=== PATIENT | male | born 1970 | race Caucasian/White ===

== ENCOUNTER 2024-12-13 00:35 | Emergency (ER) | payer OTHER, SELFPAY ==
[2024-12-13 00:48] VITALS: BP 141/83; PULSE 70; TEMP 37.1; O2SAT 95; BMI 30.1
--- OUTSIDE RECORDS SUMMARY | 2024-12-13 00:51 | XMS_ITS | Encounter Summary ---
Demographics Address [address] [place] [address] Mobile Phone Email Address Preferred Language en Marital Status Unmarried Bahai Affiliation Unknown Race White Ethnic Group Not or Lati no Author Organization [facility] Address [address] [place] [address] Care Team Providers Care Load Tester Name Role Phone Carroll Khan MD Primary Care Provider [phone] Encounter Details Date Type Department Care Team ([facility] Contact Info) Description 05/12/2023 Abstract [facility] [address] [facility] [address] [place] [address] Chrystal Pham, [address] [facility] [address] [place] [address] Social History Tobacco Use Types Packs/Day Years Used Date Smoking Tobacco: Every Day Cigarettes Passive Smoke Exposure: Current Smokeless Tobacco: Never Alcohol Use Standard Drinks/Week Comments Not Currently 0 (1 standard drink = 0.6 oz pur e alcohol) AUDIT-C Answer Date Recorded Q1: How often do you have a drink containing alcohol? Never 10/06/2022 Q2: How many drinks containi ng alcohol do you have on a typical day when you are drinking? Patient does not drink Q3: How often do you have si x or more drinks on one occasion? Never 10/06/2022 PHQ-2 Answer Date Recorded Patient Health Questionnaire-2 Score 0 10/06/2022 Sex and Gender Information Value Date Recorded Sex Assigned at Not on file Legal Sex Male 7:09 PM EDT Gender Identity Not on file Sexual Orientation Not on file documented as of this encounter Plan of Treatment Not on file documented as of this encounter Visit Diagnoses Not on filedocumented in this encounter Care Teams Load Tester Relationship Specialty Start Date End Date Carroll Khan MD [address] [place] [address] PCP - General Family Medicine 09/13/22 documented as of this encounter
--- OUTSIDE RECORDS SUMMARY | 2024-12-13 00:51 | XMS_ITS | Encounter Summary ---
Author Organization [facility] Address [address] [place] [address] Care Team Providers Care Country Printer Apprentice Name Role Phone Carroll Khan MD Primary Care Provider [phone] Reason for Visit * Reason Comments Med Refill Encounter Details Date Type Department Care Team (Late st Contact Info) Description 01/21/2023 [facility]ill [facility] [address] [facility] [address] [place] [phone] Chrystal Pham DO [address] [facility] [address] [place] [address] Diabetic polyneuropathy associated with type 2 diabetes mellitus (HCC); Mixed hyperlipidemia Social History Tobacco Use Types Packs/Day Years [...] on file documented as of this encounter Miscellaneous Notes * Telephone Encounter - Chrystal Pham DO - 01/23/2023 12:10 PM EDT He should get pravastatin from his pcp Dr Khan. thanks * Telephone Encounter - Eden Merida LPN - 01/23/2023 12:06 PM EDT Do you fill pravastatin or his pcp? documented in this encounter Plan of Treatment Not on file documented as of this encounter Visit Diagnoses Diagnosis Diabetic polyneuropathy associated with type 2 diabetes mellitus (HCC) Mixed hyperlipidemia Mixed hyperlipidemia documented in this encounter Care Teams Country Printer Apprentice Relationship Specialty Start Date End Date Carroll Khan MD [address] [place] [address] PCP - General Family Medicine 09/13/22 documented as of this encounter
--- OUTSIDE RECORDS SUMMARY | 2024-12-13 00:52 | XMS_ITS | Encounter Summary ---
Demographics Address [address] [facility] [place] [address] Mobile Phone Email Address Preferred Language en Marital Status Unmarried Advent Affiliation Unknown Race White Ethnic Group Not or Lati no Author Organization [facility] Address [address] [facility] [address] Care Team Providers Care Charger Operator Name Role Phone Carroll Khan MD Primary Care Provider [phone] Encounter Details Date Type Department Care Team (Late st Contact Info) Description 10/11/2022 Abstract [facility] [address] [facility] [address] [place] [id number] Chrystal Pham, [address] [facility] [address] [place] [address] Social History Tobacco Use Types Packs/Day Years Used Date Smoking Tobacco: Every Day Cigarettes Passive Smoke Exposure: Current Smokeless Tobacco: Never Tobacco Cessation:Ready to Q uit: Not Asked; Counseling Given: Not Answered Alcohol Use Standard Drinks/Week Comments Not Currently [...] on filedocumented in this encounter Care Teams Charger Operator Relationship Specialty Start Date End Date Carroll Khan MD [address] [place] [phone] PCP - General Family Medicine 09/13/22 documented as of this encounter
--- OUTSIDE RECORDS SUMMARY | 2024-12-13 00:52 | XMS_ITS | Clinical Summary ---
Author Organization [facility] Address [address] [facility] [place] [address] Care Team Providers Care Medical Assistant Instructor Name Role Phone Carroll Khan MD Primary Care Provider [phone] Allergies Active Allergy Reactions Criticality Noted Date Comments Morphine Headache Low 06/07/2023 Medications glucose blood (True Metrix Blood Glucose Test) test strip True Metrix Glucose Test Strip Active insulin pen needle (pen needle, diabetic) 31G X 8 mm misc BD Ultra-Fine Short Pen Needle 31 gauge x 5/16 Active fenofibrate (Triglide) 160 MG tabletIndications: Mixed hyperlipidemia Take 1 tablet (160 mg) by mouth 1 (one) time each day at the same time. 30 tablet 3 10/07/19 23 Active Additional Information Patient not taking.Reported on 12/05/2023 pravastatin (Pravachol) 20 MG tabletIndications: Mixed hyperlipidemia take 1 tablet by mouth once daily AT THE SAME TIME EACH DAY 120 tablet 06/29/19 24 Active Additional Information Patient not taking.Reported on 12/05/2023 empagliflozin (Jardiance) 10 MGIndications:Diab etic polyneuropathy associated with type 2 diabetes mellitus (HCC) Take 1 tablet (10 mg) by mouth in the morning. 90 tablet 3 11/20/19 24 Active insulin lispro (HumaLOG KWIKPEN) 100 UNIT/ML injectionIndicatio ns:Type 2 diabetes mellitus with polyneuropathy (HCC) Inject 10 units QAC (max daily 50 units) 15 mL 3 11/20/19 24 Active gabapentin (Neurontin) 300 MG capsule Three times daily 08/16/19 24 Active Continuous Glucose Sensor (FreeStyle Mary 3 Sensor) miscIndications:Ty pe 2 diabetes mellitus with polyneuropathy (HCC) Inject 1 Device under the skin every 14 (fourteen) days 6 each 3 12/05/19 24 Active insulin glargine (Lantus SoloStar) 100 UNIT/ML penIndications:Typ e 2 diabetes mellitus with polyneuropathy (HCC) Inject 50 Units under the skin Daily 15 mL 3 12/29/19 24 Active Active Problems Problem Noted Date Diagnosed Date Type 2 diabetes mellitus wit h hyperglycemia, with long-term current use of insulin 12/05/2023 Long-term insulin use 01/13/2023 Current smoker 11/15/2022 Overview (11/15/2022): Added secondary to documentation in Social History. Verruca plantaris 09/11/2022 Contracture, left ankle 09/11/2022 Contusion of foot 09/11/2022 Type 2 diabetes mellitus with polyneuropathy Assessment & Plan (12/05/2023 1:53 PM EDT): During the appointment today all pertinent labs, imaging, health maintenance, and glucose readings were reviewed. Encouraged to check blood glucose throughout the day with some fasting and some PP readings. They are to bring their glucose meter/cgm in to all appointments. All of the patients questions, treatment options, and current care plan and goals were discussed. A copy of this along with pertinent instructions were given to the patient at the end of the appointment. The patient voices understanding of all of this and is to call in between appointments if they have any problems or questions. Miguel Shah is struggling to gain control of their diabetes. I am very concerned for diabetes related complications. , Discussed importance of checking blood glucose regularly and bringing them in to their appointment in order for me to better adjust their medications. , Instructions given today include: Insulin instructions and Dietary education. He really needs to work on improving his diet and taking medications consistently to improve control. If he has a hard time getting his meds through the pharmacy he can contact our office. Unfortunately he needs follow the insurance company/pharmacy guidelines even though he doesn't like this. His life and health depends on him taking his medications regularly. Will try the [employer] mary 3 cgm as this may be less expensive for him. He needs to show up for all of his appts or at least call in 24 hrs before appt to cancel if he wishes to stay under my care. Assessment & Plan (05/12/2023 1:57 PM EST): During the appointment today all pertinent labs, imaging, health maintenance, and glucose readings were reviewed. Encouraged to check blood glucose throughout the day with some fasting and some PP readings. They are to bring their glucose meter/cgm in to all appointments. All of the patients questions, treatment options, and current care plan and goals were discussed. A copy of this along with pertinent instructions were given to the patient at the end of the appointment. The patient voices understanding of all of this and is to call in between appointments if they have any problems or questions. Miguel Shah is struggling to gain control of their diabetes. I am very concerned for diabetes related complications. , Discussed dietary changes at length. Encouraged to limit simple carbs and focus more on healthy protein/fat with all meals and snacks. They should also avoid any sugary drinks. , Discussed importance of checking blood glucose regularly and bringing them in to their appointment in order for me to better adjust their medications. , Instructions given today include: Hypoglycemia management, Insulin instructions, and Dietary education. Again discussed importance of avoiding sugary drinks and improving his diet. Will increase basal insulin. Will also add lyumjev for his large meal that he has daily. Assessment & Plan (01/13/2023 10:22 AM EDT): During the appointment today all pertinent labs, imaging, health maintenance, and glucose readings were reviewed. Encouraged to check blood glucose throughout the day with some fasting and some PP readings. They are to bring their glucose meter/cgm in to all appointments. All of the patients questions, treatment options, and current care plan and goals were discussed. A copy of this along with pertinent instructions were given to the patient at the end of the appointment. The patient voices understanding of all of this and is to call in between appointments if they have any problems or questions. Miguel Shah is struggling to gain control of their diabetes. I am very concerned for diabetes related complications. , Will stay on current medications. , The patient is wearing their cgm on a daily basis and making decisions in regards to adjusting insulin daily as well for at least the last 60 days. The only way he is going to get better control is if he stops drinking sugary drinks. He also needs to be consistent with taking his medications. Assessment & Plan (11/15/2022 1:29 PM EDT): During the appointment today all pertinent labs, imaging, health maintenance, and glucose readings were reviewed. Encouraged to check blood glucose throughout the day with some fasting and some PP readings. They are to bring their glucose meter/cgm in to all appointments. All of the patients questions, treatment options, and current care plan and goals were discussed. A copy of this along with pertinent instructions were given to the patient at the end of the appointment. The patient voices understanding of all of this and is to call in between appointments if they have any problems or questions. Miguel Shah continues to struggle to gain control of their diabetes. I am very concerned for diabetes related complications. , Instructions given today include: Dietary education. Will increase basaglar to try and improve control. I need bg readings in order to make better decisions for him. He is to avoid all sugary drinks. Will try and get him a cgm. Essential hypertension 09/11/2022 Hyperlipidemia 09/11/2022 Obesity due to excess calories 09/11/2022 Onychomycosis due to dermatophyte 09/11/2022 Pain in limb 09/11/2022 Plantar fascial fibromatosis 09/11/2022 Hematoma 05/08/2018 Infected hematoma 05/08/2018 Resolved Problems Problem Noted Date Diagnosed Date Resolved Date Diabetic mononeuropathy 09/11/2022 07/2 08/2022 Immunizations Immunization Administration Dates Next Due MMR 01/19/2001 Family History Relation Name Status Comments Father Alive Mother Alive Social History Tobacco Use Types Packs/Day Years Used Date Smoking Tobacco: Every Day Cigarettes Passive Smoke Exposure: Current Smokeless Tobacco: Never Tobacco Cessation:Ready to Q uit: Not Asked; Counseling Given: Yes Alcohol Use Standard Drinks/Week Comments Not Currently 0 (1 standard drink = 0.6 oz pur e alcohol) B1300 Health Literacy Answer Date Recor ded How often do you need to hav e someone help you when you read instructions, pamphlets, or other written material from your doctor or pharmacy? Never 11/24/2023 Social Connection and Isolat ion Panel [NHANES] Answer Date Recorded In a typical week, how many times do you talk on the phone with family, friends, or neighbors? More than three times a week 11/24/2023 How often do you get togethe r with friends or relatives? Twice a week 11/24/2023 How often do you attend chur ch or catholic services? Never 11/24/2023 Do you belong to any clubs o r organizations such as methodist groups, unions, fraternal or athletic groups, or school groups? No 11/24/2023 How often do you attend meet ings of the clubs or organizations you belong to? Never 11/24/2023 Are you , , di vorced, , never , or living with a partner? Never 11/24/2023 AUDIT-C Answer Date Recorded Q1: How often do you have a drink containing alcohol? Never 11/24/2023 Q2: How many drinks containi ng alcohol do you have on a typical day when you are drinking? Patient does not drink Q3: How often do you have si x or more drinks on one occasion? Never 11/24/2023 Overall Financial Resource Strain (CARDIA) Answe r Date Recorded How hard is it for you to pa y for the very basics like food, housing, medical care, and heating? Not very hard 11/24/2023 PHQ-2 Answer Date Recorded Patient Health Questionnaire-2 Score 0 12/05/2023 [facility] - Occupational Stress Questionnaire Answer Date Recorded Do you feel stress - tense, restless, nervous, or anxious, or unable to sleep at night because your mind is troubled all the time - these days? To some extent 11/24/2023 Exercise Vital Sign Answer Date Recorde d On average, how many days pe r week do you engage in moderate to strenuous exercise (like a brisk walk)? 2 days 11/24/2023 On average, how many minutes do you engage in exercise at this level? 20 min 11/24/2023 Hunger Vital Sign Answer Date Recorded Within the past 12 months, y ou worried that your food would run out before you got the money to buy more. Sometimes true Within the past 12 months, t he food you bought just didn't last and you didn't have money to get more. Sometimes true 05/2023 PRAPARE - Transportation Answer Date Re corded In the past 12 months, has l ack of transportation kept you from medical appointments or from getting medications? No 05/2023 In the past 12 months, has l ack of transportation kept you from meetings, work, or from getting things needed for daily living? No 11/24/2023 Housing Stability Vital Sign Answer Damir e Recorded In the last 12 months, was t here a time when you were not able to pay the mortgage or rent on time? No 11/24/2023 Number of Times Moved in the Last Year Not on fi le 11/24/2023 At any time in the past 12 [address] [place], were you homeless or living in a jail (including now)? No 11/24/2023 Sex and Gender Information Value Date Recorded Sex Assigned at Not on file Legal Sex Male 7:09 PM EDT Gender Identity Not on file Sexual Orientation Not on file Last Filed Vital Signs Vital Sign Reading Time Taken Comments Blood Pressure 128/82 12/05/2023 11:29 AM EDT Pulse 87 12/05/2023 11:29 AM EDT Temperature 36.2 C (97.1 F) 12/05/2023 11:29 AM EDT Respiratory Rate - - Oxygen Saturation 98% 12/05/2023 11:29 AM EDT Inhaled Oxygen Concentration - - Weight 98.9 kg (218 lb) 12/05/2023 11:29 AM EDT Height 180.3 cm (5' 11 ) 12/05/2023 11:29 AM EDT Body Mass Index 30.4 12/05/2023 11:29 AM EDT Plan of Treatment Not on file Insurance * Guarantor: Miguel Shah Account Type Relation to Patient Date of Phone Billing Address Personal/Family Self 1970 [address] [place] [address] [facility] Care Teams Medical Assistant Instructor Relationship Specialty Start Date End Date Carroll Khan MD [address] [place] [address] PCP - General Family Medicine 09/13/22
--- OUTSIDE RECORDS SUMMARY | 2024-12-13 00:52 | XMS_ITS | Encounter Summary ---
Author Organization [facility] Address [address] [place] [address] Care Team Providers Care Intensive Care Ambulance Paramedic Name Role Phone Carroll Khan MD Primary Care Provider [phone] Reason for Visit * Reason Onset Date Comments Med Refill 05/31/2023 Encounter Details Date Type Department Care Team (Late st Contact Info) Description 05/31/2023 Refill [facility] [address] [facility] [address] [place] [phone] Chrystal Pham, [address] [facility] [address] [place] [address] Type 2 diabetes mellitus with polyneuropathy (HCC) Social History Tobacco Use Types Packs/Day Years [...] encounter Miscellaneous Notes * Telephone Encounter - Lois Michelle LPN - 05/31/2023 10:23 AM EST RX sent 05/17/23 documented in this encounter Plan of Treatment Not on file documented as of this encounter Visit Diagnoses Diagnosis Type 2 diabetes mellitus with polyneuropathy (HCC) Type II or unspecified type diabetes mellitus with neurological manifestations, not stated as uncontrolled documented in this encounter Care Teams Intensive Care Ambulance Paramedic Relationship Specialty Start Date End Date Carroll Khan MD [address] [place] [address] PCP - General Family Medicine 09/13/22 documented as of this encounter
[2024-12-13 01:44] VITALS: BP 142/82; PULSE 88; TEMP 36.3; O2SAT 97
[2024-12-13] MEDS: FAMOTIDINE/PF 20 MG/2 ML VIAL IV (02:29)
[2024-12-13] MEDS: 0.9 % SODIUM CHLORIDE 1,000 ML 1000 ML IV (02:29)
[2024-12-13 02:38] LABS: Hematocrit 42.7 % (42.0-54.0); Hemoglobin 14.6 g/dL (14.0-18.0); Immature Granulocytes Abs Auto 0.06 10^3/uL (0.00-0.03); Immature Granulocytes Pct Auto 0.6 % (0.0-0.5); Lymphocytes Absolute Auto 2.7 10^3/uL (1.2-3.8); Mean Corpuscular HGB Conc 34.2 g/dL (29.9-35.2); Mean Corpuscular Hemoglobin 29.1 pg (25.9-34.0); Mean Corpuscular Volume 85.1 fL (80.0-94.0); Platelet Count 171 10^3/uL (150-450); Red Blood Count 5.02 10^6/uL (4.70-6.10); White Blood Count 10.3 10^3/uL (4.0-11.0)
--- NOTE | 2024-12-13 02:49 | ED.ABDPAIN1 ---
HPI - Abdominal Pain General Chief Complaint: Abdominal Pain Stated Complaint: ABDOMINAL PAIN LASTING TWO WEEKS Time Seen by Provider: 12/13/24 00:44 Source: patient Mode of arrival: walk-in Limitations: no limitations Related Data Home Medications ?Medication ?Instructions ?Recorded ?Confirmed fenofibrate 160 mg tablet mg 12/13/24 lisinopril 10 mg tablet mg 12/13/24 pravastatin 20 mg tablet mg 12/13/24 Allergies Allergy/AdvReac Type Severity Reaction Status Date / Time No Known Drug Allergies Allergy Verified 12/13/24 00:53 Review of Systems ROS Status of ROS 10 or more systems reviewed and unremarkable except as noted in history and below [facility] Medical History (Updated 12/13/24 @ 05:35 by Marisol Grossman MD) Pancreatitis ?K85.90 - Acute pancreatitis without necrosis or infection, unspecified (ICD-10) Social History Little interest or pleasure in doing things: not at all Feeling down, depressed, or hopeless: not at all Exam Narrative Exam Narrative: Vital signs and Nursing Notes reviewed: Patient is afebrile with a normal pulse, blood pressure is mildly elevated 142/82, he is not hypoxic with pulse ox of 97% on room air General: Awake, alert, oriented, no acute distress, lying comfortably on the stretcher HEENT: Normocephalic atraumatic, mucous membranes are moist and pink, eyes are clear, normal conjunctiva, vision is grossly intact, no scleral icterus Chest: Lungs are clear to auscultation with good air entry, there is no wheezing rhonchi or rales appreciated no accessory muscle use, patient is speaking in complete sentences-no chest wall tenderness to palpation CVS: Regular rate and rhythm S1-S2, no murmurs rubs or gallops, pulses are brisk and equal bilaterally ABD: Soft, nondistended, mild epigastric tenderness with no rebound guarding rigidity, no pulsatile masses, no lower jose tenderness noted, bowel sounds are normal Extremities: Moving all extremities, no lower extremity tenderness or swelling noted, negative Homans' sign, pulses are brisk and equal bilaterally Skin: Normal in appearance without rash,pallor, petechiae or purpura Neuro: No focal deficits I Constitutional Vital Signs, click to edit/add: Last Vital Signs Temp 97.3 F L 12/13/24 01:44 Pulse 88 12/13/24 01:44 Resp 16 12/13/24 01:44 BP 142/82 H 12/13/24 01:44 Pulse Ox 97 12/13/24 01:44 O2 Del Method Room Air 12/13/24 01:44 Course Vital Signs Vital signs: Vital Signs Temperature 98.7 F 12/13/24 00:48 Pulse Rate 70 12/13/24 00:48 Respiratory Rate 18 12/13/24 00:48 Blood Pressure 141/83 12/13/24 00:48 Pulse Oximetry 95 12/13/24 00:48 Temperature 97.3 F L 12/13/24 01:44 Pulse Rate 88 12/13/24 01:44 Respiratory Rate 16 12/13/24 01:44 Blood Pressure 142/82 H 12/13/24 01:44 Pulse Oximetry 97 12/13/24 01:44 Oxygen Delivery Method Room Air 12/13/24 01:44 MDM - Abdominal Pain MDM Narrative Medical decision making narrative: This 53-year-old male with a history of pancreatitis in the past who has not been an alcohol drinker for the past 15 years presents for evaluation of intermittent upper abdominal pain that is intermittent in the epigastric and left upper quadrant areas. It does not radiate. It is not associated with nausea or vomiting. He has not had any weight loss. He was seen by his family physician who stated to him that he wanted to get a CAT scan but the patient has not been contacted yet to get the CAT scan so he comes to the emergency department for these complaints. He is not currently having any pain. He denies any chest pain or shortness of breath. He states that at times his upper abdomen feels distended. He has not been constipated or had any diarrhea. He has not had any fever. Routine labs are reviewed.He has a white count and stable hemoglobin. Electrolytes are normal with the exception of a glucose of 272. Liver function tests are normal. Lipase is elevated at 209. CT scan of the abdomen pelvis with IV contrast was ordered and shows some questionable gallbladder wall thickening cholelithiasis with recommendation for ultrasound if cholecystitis is a clinical concern. At this time acute cholecystitis is not a clinical concern as he is not having any pain. The pain has been intermittent for the past 2 weeks. He will be provided a copy of his CT scan to share with his family physician with recommendation for an outpatient ultrasound as directed by his family physician. Lab Data Attestation: I reviewed the patient's lab results. Labs: Lab Results 12/13/24 Range/Units 02:25 WBC 10.3 (4.0-11.0) 10^3/uL RBC 5.02 (4.70-6.10) 10^6/uL Hgb 14.6 (14.0-18.0) g/dL Hct 42.7 (42.0-54.0) % MCV 85.1 (80.0-94.0) fL MCH 29.1 (25.9-34.0) pg MCHC 34.2 (29.9-35.2) g/dL RDW 15.0 (11.0-15.0) % Plt Count 171 (150-450) 10^3/uL MPV 11.7 (9.5-13.5) fL Neut % (Auto) 64.4 (43.0-75.0) % Lymph % (Auto) 25.9 (20.5-60.0) % [place] % (Auto) 6.9 (1.7-12.0) % Eos % (Auto) 1.7 (0.9-7.0) % Baso % (Auto) 0.5 (0.2-2.0) % Neut # (Auto) 6.6 H (1.4-6.5) 10^3/uL Lymph # (Auto) 2.7 (1.2-3.8) 10^3/uL [place] # (Auto) 0.7 (0.3-0.8) 10^3/uL Eos # (Auto) 0.2 (0.0-0.7) 10^3/uL Baso # (Auto) 0.1 (0.0-0.1) 10^3/uL Abs Immat Gran (auto) 0.06 H (0.00-0.03) 10^3/uL Imm/Tot Granulo (auto) 0.6 H (0.0-0.5) % Sodium 135 L (136-145) mmol/L Potassium 4.3 (3.5-5.1) mmol/L Chloride 99 (98-107) mmol/L Carbon Dioxide 29.0 (21.0-32.0) mmol/L Anion Gap 11.3 BUN 19.0 H (7.0-18.0) mg/dL Creatinine 0.86 (0.70-1.30) mg/dL Est GFR ( Amer) >60 (>=60 mL/min/1.73m^2) Est GFR (Non-Af Amer) >60 (>=60 mL/min/1.73m^2) BUN/Creatinine Ratio 22.1 Glucose 272 H (74-106) mg/dL Lactate 1.3 (0.4-2.0) mmol/L Calcium 9.2 (8.5-10.1) mg/dL Total Bilirubin 0.4 (0.2-1.0) mg/dL AST 11 L (15-37) U/L ALT 22 (16-63) U/L Alkaline Phosphatase 86 (46-116) U/L Total Protein 7.6 (6.4-8.2) g/dL Albumin 3.6 (3.4-5.0) g/dL Globulin 4.0 g/dL Albumin/Globulin Ratio 0.9 Lipase 209.0 H (16.0-77.0) U/L Discharge Plan Discharge Chief Complaint: Abdominal Pain Clinical Impression: Abdominal pain, Gallstones Patient Disposition: Home, Self-Care Time of Disposition Decision: 05:35 Condition: Good Prescriptions / Home Meds: No Action lisinopril 10 mg tablet pravastatin 20 mg tablet fenofibrate 160 mg tablet Print Language: Portuguese Instructions: Gallstones (ED), Abdominal Pain (ED) Referrals: NOELLE VELA [Primary Care Provider, Family Practice] - 1 week
[2024-12-13 02:52] LABS: Alanine Aminotransferase 22 U/L (16-63); Albumin Globulin Ratio 0.9; Albumin Level 3.6 g/dL (3.4-5.0); Alkaline Phosphatase 86 U/L (46-116); Anion Gap 11.3; Aspartate Amino Transferase 11 U/L (15-37); Blood Urea Nitrogen 19.0 mg/dL (7.0-18.0); Calcium 9.2 mg/dL (8.5-10.1); Carbon Dioxide 29.0 mmol/L (21.0-32.0); Chloride 99 mmol/L (98-107); Estimated GFR (African America >60 (>=60 mL/min/1.73m^2); Estimated GFR (Non-African Ame >60 (>=60 mL/min/1.73m^2); Globulin 4.0 g/dL; Glucose 272 mg/dL (74-106); Lipase 209.0 U/L (16.0-77.0); Potassium 4.3 mmol/L (3.5-5.1); Sodium 135 mmol/L (136-145); Total Protein 7.6 g/dL (6.4-8.2)
[2024-12-13 02:54] LABS: Lactate/Lactic Acid 1.3 mmol/L (0.4-2.0)
[2024-12-13 06:01] VITALS: BP 128/89; PULSE 80; O2SAT 98
== END 2024-12-13 06:03 | disposition home or self-care (01) ==
PROVIDERS: Emergency Provider Emergency Medicine; PCP Family Medicine
DX: R10.13 Epigastric pain (principal); R10.12 Left upper quadrant pain; K80.20 Calculus of gallbladder without cholecystitis without obstruction
CPT/HCPCS: 36415; 74177; 80053; 83605; 83690; 85025; 96374; 99284; J3490; Q9967

== ENCOUNTER 2025-02-28 02:54 | Emergency (ER) | payer OTHER, SELFPAY ==
--- OUTSIDE RECORDS SUMMARY | 2025-02-19 08:00 | XMS_ITS | Encounter Summary ---
Author Organization [facility] Address [address] [place] [address] Care Team Providers Care Pre School Manager Name Role Phone Carroll Khan MD Primary Care Provider [phone] Reason for Visit * AvihujVnhodadu7gi pow Lap maciej Encounter Details DateTypeDepartmentCare Team (Latest Contact Info)Gwrkmgpaadc63/29/2025 9:00 AM EDTOffice Visit [facility] [address] [place] [phone] Shaji Cabral DO [address] [facility] [address] [place] [address] Calculus of gallbladder with acute on chronic cholecystitis without obstruction (Primary Dx); History of pancreatitis Social History Tobacco UseTypesPacks/DayYears UsedDateSmoking Tobacco: Every DayCigarettes Passive Smoke Exposure: CurrentSmokeless Tobacco: NeverAlcohol UseStandard Drinks/WeekCommentsNot Currently0 (1 standard drink = 0.6 oz pure alcohol)B1300 Health LiteracyAnswerDate RecordedHow often do you need to have someone help you when you read instructions, pamphlets, or other written material from your doctor or pharmacy?Never11/24/2023Social Connection and Isolation PanelAnswer Date RecordedIn a typical week, how many times do you talk on the phone with family, friends, or neighbors?More than three times a week11/24/2023How often do you get together with friends or relatives?Twice a week11/24/2023How often do you attend buddhism or muslim services?Never11/24/2023o you belong to any clubs or organizations such as buddhism groups, unions, fraternal or athletic aaron ups, or school groups?No11/24/2023How often do you attend meetings of the clubs or organizations you belong to?Never11/24/2023re you , , , , never , or living with a partner?Never 11/24/2023UDIT-CAnswerDate RecordedQ1: How often do you have a drink containing alcohol?Never11/24/2023Q2: How many drinks containing alcohol do you have on a typical day when you are drinking?Patient does not drink11/24/2023Q3: How often do you have six or more drinks on one occasion?Never11/24/2023Overall Financial Resource Strain (CARDIA)AnswerDate RecordedHow hard is it for you to pay for the very basics like food, housing, medical care, and heating?Not very hard 11/24/2023HQ-2AnswerDate RecordedPatient Health Questionnaire-2 Score0 12/05/2023[facility] [place] [facility] Occupational [facility] - Occupational Stress QuestionnaireAnswerDate RecordedDo you feel stress - tense, restless, nervous, or anxious, or unable to sleep at night because yourmind is troubled all the time - these days?To some bsvvdn0911/24/2023Exercise Vital SignAnswerDate Recorded On average, how many days per week do you engage in moderate to strenuous exercise (like a brisk walk)?2 days11/24/2023On average, how many minutes do you engage in exercise at this level?20 min11/24/2023Hunger Vital SignAnswerDate RecordedWithin the past 12 months, you worried that your food would run out before you got the money to buymore.Sometimes true11/24/2023Within the past 12 months, the food you bought just didn't last and you didn't have money to get more.Sometimes true11/24/2023RAPARE - TransportationAnswerDate RecordedIn the past 12 months, has lack of transportation kept you from medical appointments or from getting medications?No11/24/2023In the past 12 months, has lack of transportation kept you from meetings, work, or from getting things needed for daily living?No11/24/2023Housing Stability Vital SignAnswerDate RecordedIn the last 12 months, was there a time when you were not able to pay the mortgage or rent on time?11/24/2023Number of Times Moved in the Last YearNot on file 11/24/2023t any time in the past 12 months, were you homeless or living in a assisted (including now)?11/24/2023Sex and Gender InformationValueDate Recorded Sex Assigned at BirthNot on fileLegal EhuItsg1207/06/2022 7:09 PM EDTGender IdentityNot on fileSexual OrientationNot on filedocumented as of this encounter Progress Notes * Shaji Cabral, DO - 02/19/2025 9:00 AM EDT Images from the original note were not included. Miguel Shah 1970 Miguel Shah is a 54 y.o. male presents for 3rd [facility] maciej HPI: HPI Patient said that he is doing well. He has not having any pain issues. He has not having any pain at incisions. Unless he really bumps against the umbilical incision it has not having any soreness. He is eating without any difficulty. He has not having any nausea or vomiting. He has not havingany symptom that he had prior to surgery. No diarrhea. 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 OBJECTIVE: Physical Exam Constitutional: Appearance: Normal appearance. He is not toxic-appearing. Cardiovascular: Rate and Rhythm: Regular rhythm. Abdominal: General: There is no distension. Tenderness: There is no abdominal tenderness. Comments: Firm scar tissue noted at the umbilical incision no hernia. No pain on exam. All incisions are clean dry and intact. ASSESSMENT AND PLAN: Assessment/Plan Diagnoses and all orders for this visit: Calculus of gallbladder with acute on chronic cholecystitis without obstruction History of pancreatitis Status post laparoscopic cholecystectomy. Patient is healing well. We discussed continued activity restrictions until he gets back to work next week. He can go back to work without restrictions. He is comfortable with that. I am happy to see him again on an as-needed basis otherwise he is discharged from my care. No follow-ups on file. documented in this encounter Plan of Treatment DateTypeDepartmentCare Team (Latest Contact Info)Jmidjqxtzij90/11/2025 2:30 PM ESTOffice Visit [facility] [address] [phone] Shaji Cabral DO [address] [address] documented as of this encounter Visit Diagnoses Diagnosis Calculus of gallbladder with acute on chronic cholecystitis without obstruction- Primary History of pancreatitis Personal history of other diseases of digestive disease documented in this encounter Care Teams Team MemberRelationshipSpecialtyStart DateEnd Date Carroll Khan MD [address] [place] [address] PCP - GeneralFamily Medicine09/13/22documented as of this encounter
--- OUTSIDE RECORDS SUMMARY | 2025-02-25 10:15 | XMS_ITS | Encounter Summary ---
Author Organization [facility] Address [address] [place] [address] Care Team Providers Care Olericulturist Name Role Phone Carroll Khan MD Primary Care Provider [phone] Reason for Visit * ReasonCommentsAbdominal PainPt said he went back to work yesterday and was having the worst pain of his life. His abdomen hurt and he felt lightheaded. He said his nose was bleeding. Encounter Details DateTypeDepartmentCare Team (Latest Contact Info)Sywrjzihfqd18/04/2025 10:15 AM ESTOffice Visit [facility] [address] [facility] [address] [place] [address] Shaji Cabral, [address] [facility] [address] [place] [address] History of pancreatitis (Primary Dx); Calculus of gallbladder with acute on chronic cholecystitis without obstruction; Generalized abdominal pain Social History Tobacco UseTypesPacks/DayYears UsedDateSmoking Tobacco: Every [...] relatives?Twice a week11/24/2023How often do you attend zoroastrianism or episcopal services?Never11/24/2023o you belong to any clubs or organizations such as zoroastrianism groups, unions, fraternal or athletic aaron ups, [...] very hard 11/24/2023HQ-2AnswerDate RecordedPatient Health Questionnaire-2 Score0 12/05/2023[facility] [place] [facility] Occup[facility] - Occupational Stress QuestionnaireAnswerDate RecordedDo you feel stress - tense, restless, nervous, or anxious, or unable to sleep at night because yourmind is troubled all the time - these days?To some qeencn8411/24/2023Exercise Vital SignAnswerDate Recorded On average, how many [...] or from getting things needed for daily living?11/24/2023Housing Stability Vital SignAnswerDate RecordedIn the last 12 months, was there a time when you were not able to pay the mortgage or rent on time?No11/24/2023Number of Times Moved in the Last YearNot on file 11/24/2023t any time in the past 12 months, were you homeless or living in a fpc (including now)?No11/24/2023Sex and Gender InformationValueDate Recorded Sex Assigned at BirthNot on fileLegal FxeVrxx5907/06/2022 7:09 PM EDTGender IdentityNot on fileSexual OrientationNot on filedocumented as of this encounter Last Filed Vital Signs Vital SignReadingTime TakenCommentsBlood Pressure--Pulse--Temperature-- Respiratory Rate--Oxygen Saturation--Inhaled Oxygen Concentration--Defeaf450 kg (227 lb)02/25/2025 10:25 AM SXHZervar150.3 cm (5' 11 )02/25/2025 10:25 AM EST Body Mass Index31.6602/25/2025 10:25 AM ESTdocumented in this encounter Progress Notes * Shaji Cabral, - 02/25/2025 10:15 AM EST Images from the original note were not included. Miguel Shah 1970 Miguel Shah is a 54 y.o. male presents for Abdominal Pain (Pt said he went back to work yesterday and was having the worst pain of his life. His abdomen hurt and he felt lightheaded. He said hisnose was bleeding. ) HPI: Abdominal Pain Patient said on Monday night he got some abdominal pain. It was not at anyone particular spot. It was all over. There was significant. He was not noticing any issues at the incisions or at the umbilical incision. With twisting it seemed to be worst. He was not vomiting. He is having bowel movements. 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 He is thinking he needs another week off of work. He can not take time off without a medical leave. He has not vomiting. He has not having any fevers chills or sweats. He has not having any darkening of his urine. Things are not severe like they were the other day. He also noticed some nose bleeding But it was very short-lived and just a little bit on the toilet paper when he blew his nose. He said the area was very dry where he was working. OBJECTIVE: Physical Exam Constitutional: Appearance: Normal appearance. He is not toxic-appearing. Comments: After the exam patient is walking and moving around the office without any difficulty. Cardiovascular: Rate and Rhythm: Regular rhythm. Pulmonary: Effort: No respiratory distress. Abdominal: General: There is no distension. Tenderness: There is no abdominal tenderness. Comments: No hernia on exam. Vigorous exam of the periumbilical incision reveals no hernia defect nor focal point tenderness. With Valsalva that has not producing a hernia or mass in the location nor is he having worse pain with that. He has a vague mild pain on exam with no peritonitis or pronounced tenderness. Incisions are well healed no cellulitis or discharge. ASSESSMENT AND PLAN: Assessment/Plan Diagnoses and all orders for this visit: History of pancreatitis Calculus of gallbladder with acute on chronic cholecystitis without obstruction Generalized abdominal pain Pain attack, symptoms improving, no evidence of any hernia or release inches surgical site. Patientalso does not feel it seems to be involved with his incisions. I discussed with him pushing oral intake of liquids and we will check liver function tests including lipase to evaluate for pancreatitis or retained gallstone. If he has severe pain worsening needs to go to emergency room. He is off work until next Monday when I can re-evaluate him. I encouraged him to watch his diet and activity inthe meantime. No follow-ups on file. documented in this encounter Plan of Treatment DateTypeDepartmentCare Team (Latest Contact Info)Bmxvwyojnzc38/11/2025 2:30 PM ESTOffice Visit [facility] [address] [facility] [address] [place] [phone] Shaji Cabral DO [address] [facility] [address] [place] [address] documented as of this encounter Visit Diagnoses Diagnosis History of pancreatitis- Primary Personal history of other diseases of digestive disease Calculus of gallbladder with acute on chronic cholecystitis without obstruction Generalized abdominal pain Abdominal pain, generalized documented in this encounter Care Teams Team MemberRelationshipSpecialtyStart DateEnd Date Carroll Khan MD [address] [place] [phone] PCP - GeneralFamily Medicine09/13/22documented as of this encounter
--- OUTSIDE RECORDS SUMMARY | 2025-02-25 19:32 | XMS_ITS | Continuity of Care Document ---
Author Organization [facility] Address [address] [place] [address] Phone Care Team Providers Care [employer] Name Role Phone ErinKamrynrakel CHAND Primary Care Provider Carroll Khan DO Attending Provider [phone] Shaji Cabral DO Attending Provider Care Teams Patient Care Team Team Status: Active Member Role/Relationship Status Dates Carroll Khan DO Primary Care Provider Active Visit Care Team Team Status: Inactive Member Role/Relationship Status Dates Carroll Khan DO Primary Care Provider Active Start: December 03, 2024 End: December 03, 2024ReSaskia Perez ProviderActiveStart: December 03, 2024 End: December 03, 2024 Visit Care Team Team Status: Inactive Member Role/Relationship Status Dates Carroll Khan DO Primary Care Provider Active Start: January 13, 2025 End: January 13, 2025PaSaskia Garcia ProviderActiveStart: January 13, 2025 End: January 13, 2025 Visit Care Team Team Status: Inactive Member Role/Relationship Status Dates Carroll Khan DO Primary Care Provider Active Start: January 27, 2025 End: January 27, 2025Saskia Steiner ProviderActiveStart: January 27, 2025 End: January 27, 2025 Patient Care Team Team Status: Inactive Member Role/Relationship Status Dates Carroll Khan DO Primary Care Provider Active Start: February 25, 2025 End: February 25, 2025PaSaskia Garcia ProviderActiveStart: February 25, 2025 End: February 25, 2025 Chief Complaint and Reason for Visit Chief Complaint Admit Date e11.40 e78.5 r10.13 i10 E78.5 November 5:51am Calculus Cholecystitis, Hx of Pancreatit is January 13, 2025 10:56am Calculus Cholecystitis, Hx of Pancreatit is January 27, 2025 8:09am Upper Abd Pain February 25, 2025 1 1:04am Allergies, Adverse Reactions, Alerts Allergen Type Severity Reaction Last Updated Verified Status morphine Adverse Reaction Mild Headache January 27, 2025 7:2 5am Yes Active Social History Smoking Status Status Start Date End Date Date of Observa tion Smokes tobacco daily (finding) January 27, 2025 8:28am Observation Status Observation Response Date of Response Legal Sex Male (finding) [facility] Family History Relationship Condition Age at Onset Recorded Date/T patrick father Unknown Malignant neoplasm of lungUnknownmotherDeceasedUnknownsisterMalignant neoplasm UnknownDeceasedUnknown Problems Active Problems Problem Diagnosis/Recorded Date Onset Date Stat us Type 2 diabetes mellitus June 07, 2023 10:23am U nknown Active Cholecystitis January 27, 2025 9:46am Unknown Ac tive Neuropathy June 07, 2023 10:23am Unknown Active Other chronic pain June 07, 2023 10:23am Unknown Active Diabetic peripheral neuropathy June 07, 2023 10: 23am Unknown Active Medications Medication Status Dose Units Route Directions Qty Days Refills S tart Date Stop Date End Date Reason(s) Instructions Adherence Insulin Lispro (Humalog Kwik pen Insulin) 100 unit/mL Insulin Pen Active 10 UNIT SUBCUT 3x/Day befor e meals April 23, 2018 12:00amUnknownLisinopril 10 mg vrruznWkrgus37XLOVVaaci morningSeptember 2024 11:00pmUnknownGabapentin 300 mg xidvlwyYykgpc569YEHO Three times daily as needed for nerve painSeptember 2024 11:00pmUnknown Tramadol 50 mg pbjggfYujyju03NIKQP7W as needed for kyao4685Lfdippv 2024 11:00pmCholecystitis Cholecystitis, unspecifiedUnknownMetformin 500 mg hwbeqmGsrvyqvzzaua571JTTIAbvhm dailySelect [facility] 2017 11:00pmFebrour [facility] 2023 10:22amLisinopril 10 mg ssollqDbeofprdujhb74VLSFHuajqZfnwtes 2017 11:00pmFeabrazo [facility] campus 2023 10:21amPravastatin 20 mg hgctlqHinmmg43LDVFJkfge [facility] 2017 11:00pmUnknownFenofibrate 160 mg qowplyFvltnfhaxesx548DKWWXthnmQyejhdb 2017 11:00pm[facility] 2017 1:32amInsulin Glargine 100 unit/mL (3 mL) insulin syvEwklfz95QVEHQLAYGSZnmjg [facility] 2017 11:00pmUnknown Rivaroxaban (Xarelto) 15 mg (42)- 20 mg (9) tablets,dose lzhfEscybmtqvgkc5EIvju package cqeiciopcb137Vbxjrje 2017 11:00pmSelect [facility]ty Hospital[facility] 2017 8:28pmPO PER PKG DIR must administer with evening mealRivaroxaban (Xarelto) 15 mg (42)- 20 mg (9) tablets,dose aihaAlgxwdgedryv70MATGTykaw dailySelect [facility]ty [facility] 2017 8:30pm April 23, 2018 1:32amHydrocodone-Acetaminophen ([place]) 5-325 mg tablet Tnfvkvqgvbjh5NAYHUB3C as needed for esgw6729Yvaebqn [facility]2017 1:32amFamotidine (Pepcid) 20 mg ednenpWzhquvonuthr62NJVIHtiky ebqau150 February 18, 2018 11:00p[facility]2017 1:32amGabapentin 300 mg capsule Ldmyizndncps785QROSCcdvz times fiigl62202Ppqgt 2023 9:25amSeptember 2024 10:31amFenofibrate 160 mg pchzmnMxddsy061KGFVAzppn [facility] 2023 12:00amFreeTextSi tablet with food Orally Once a day; Note: Source Status: Taking; Provider: Latanya Wilkerson ( )UnknownEmpagliflozin (Jardiance) 10 mg nmhzokQdzkcmrkuhud26BPKRJhgtoEcjrmnxk 2023 12:00am January 13, 2025 10:27amGabapentin 300 mg uvzehdeLqfsnwyrlhnj579BPSW.COMPLEX 55573Zjxcynrq 2023 12:00amApril 2023 9:11nj518 mg orally once daily at bedtime for 3-5 days then twice daily for 3-5 days then three times daily as tolerated Procedures Procedure Date Performed Status OR Cholecystectomy Laparoscopic (Not Applicable) January 27, 2025 9:10am completed Relevant Diagnostic Tests and/or Laboratory Data Laboratory Results Test Collection Date/Time Result Date/Time Result Interpretation Reference Range Result Comment Performing Site Corrected White Blood Count December 03, 2024 5:03am December 03, 2024 5:43am 10.5 10*3/uL [facility]10.5[facility] [id number] [address] [facility] 69338Kjqrfkzos White Blood CountSeptember 2024 10:25am January 13, 2025 12:09pm11.3 10*3/uLAbove high normal4.1-10.[address] [place] [address] Ctr [id number] [address] [facility] 95083Ptvtlnzvunv WBC CountAugust 2024 5:03amAugust 2024 5:43am10.5 10*3/uL4.1-10.[address] [place] [address] Ctr [id number] [address] [facility] 33664Dqvlitfznce WBC CountSeptember 2024 10:25amSeptember 2024 12:09pm11.3 10*3/uLAbove high normal4.1-10.5[facility] [id number] [address] [facility] 52795Etx Blood CountAugust 2024 5:03amAugust 2024 5:43am 5.34 10*6/uL3.90-5.60[facility] [id number] [address] [facility] 51317Tji Blood CountSeptember 2024 10:25amSeptember 2024 12:09pm5.00 10*6/uL3.90-5.60[facility] [id number] [address] [facility] 64260AjszfjvligPctfiz 2024 5:03amAugust 2024 5:43am15.4 g/dL13.0-17.0[facility] [id number] [address] [facility] 06523NcmvrbpgesJvsxcgewf 2024 10:25amSeptember 2024 12:09pm14.5 g/dL13.0-17.0[facility] [id number] [address] [facility] 09970XiluejzvwcHyphib 2024 5:03amAugust 2024 5:43am45.3 %38.8-50.0[facility] [id number] [address] [facility] 68695SlyxcjqucsEmguequio 2024 10:25amSeptember 2024 12:09pm42.9 %38.8-50.0[facility] [id number] [address] [place] [address] 40900Hxvk Corpuscular VolumeAugust 2024 5:03amAugust 2024 5:43am84.9 fL83.5-101[facility] [id number] [address] [facility] 86286Bjrl Corpuscular VolumeSeptember 2024 10:25amSeptember 2024 12:09pm85.8 fL83.5-101[facility] [id number] [address] [facility] 78320Lwnn Corpuscular HemoglobinAugust 2024 5:03amAugust 2024 5:43am28.8 pg27.5-35.2[facility] [id number] [address] [facility] 85231Wvww Corpuscular HemoglobinSeptember 2024 10:25am Susan 2024 12:09pm29.0 pg27.5-35.2[facility] [id number] [address] [facility] 65566Dugu Corpuscular Hemoglobin ConcentAugust 2024 5:03am December 03, 2024 5:43am33.9 g/dL32.5-35.6[facility] [id number] [address] [place] [address] 85777Jcmu Corpuscular Hemoglobin ConcentSeptember 2024 10:25am January 13, 2025 12:09pm33.8 g/dL32.5-35.6[facility] [id number] [address] [place] [address] 23338Nle Cell Distribution WidthAugust 2024 5:032024 5:43am15.8 %Above high kjudht39.0-14.8[facility] [id number] [address] [place] [address] 46164Pzv Cell Distribution WidthSeptember 2024 10:25am January 13, 2025 12:09pm15.7 %Above high owvscv55.0-14.8[facility] [id number] [address] [place] [address] 94767Ryezmvkh CountAugust 2024 5:032024 5:43am 163 10*3/tR129-254AwmslwnyqHol[facility] Center [facility] [id number] [address] [place] [address] 70465Zdpiqoxt CountSeptember 2024 10:25amSeptember 2024 12:06nm877 10*3/kR961-533FzujuqphgHolzer Medical Center [facility] [id number] [address] [place] [address] 23254Vjrf Platelet VolumeAugust 2024 5:032024 5:43am9.2 fL6.6-10.1[facility] [id number] [address] [place] [address] 91963Mlcb Platelet VolumeSeptember 2024 10:25amSeptember 2024 12:09pm10.0 fL6.6-10.1[facility] [id number] [address] [place] [address] 38248Qgnakhtpeqo (%) (Auto)December 03, 2024 5:032024 5:43am63.5 %.[facility] [id number] [address] [facility] [place] [address]Bvheaimyaxh (%) (Auto)January 13, 2025 10:25amSeptember 2024 12:09pm65.4 %.[facility] [id number] [address] [facility] [place] [address]Cnesnkyqqvd (%) (Auto)December 03, 2024 5:032024 5:43am28.4 %.[facility] [id number] [address] [facility] [place] [address]Imaraueouoh (%) (Auto)January 13, 2025 10:25amSeptember 2024 12:09pm25.7 %.[facility] [id number] [address] [facility] [place] [address]Wfhrqrivq (%) (Auto)December 03, 2024 5:032024 5:43am5.2 %.[facility] [id number] [address] [facility] [place] [address]Syjcgftef (%) (Auto)January 13, 2025 10:25amSeptember 2024 12:09pm5.7 %.[facility] [id number] [address] [facility] [place] [address]Iofazizolxr (%) (Auto)December 03, 2024 5:032024 5:43am2.2 %.[facility] [id number] [address] [facility] [place] [address]Jgjbxbpenmg (%) (Auto)January 13, 2025 10:25amSeptember 2024 12:09pm2.4 %.[facility] [id number] [address] [facility] [place] [address]Geboaekrw (%) (Auto)December 03, 2024 5:032024 5:43am0.7 %.[facility] [id number] [address] [facility] [place] [address]Payjaeudd (%) (Auto)January 13, 2025 10:25amSeptember 2024 12:09pm0.8 %.[facility] [id number] [address] [facility] 75010Phnidxjdo RBC Relative Count (auto)December 03, 2024 5:03am December 03, 2024 5:43am0.2 /100{WBC}0-0.5[facility] [id number] [address] [facility] 33863Kdjukzexa RBC Relative Count (auto)January 13, 2025 10:25am January 13, 2025 12:09pm0.2 /100{WBC}0-0.5[facility] [id number] [address] [facility] 576[address]Datololvedh # (Auto)December 03, 2024 5:032024 5:43am6.6 10*3/uL1.8-7.7[facility] [id number] [address] [facility] 75331Cuetggukgxj # (Auto)January 13, 2025 10:25amSeptember 2024 12:09pm7.4 10*3/uL1.8-7.7[facility] [id number] [address] [place] [address] 99285Usasbzrnwzy # (Auto)December 03, 2024 5:032024 5:43am3.0 10*3/uL1.00-4.8[facility] [id number] [address] [place] [address] 85569Xwwtflrszma # (Auto)January 13, 2025 10:25amSeptember 2024 12:09pm2.9 10*3/uL1.00-4.8[facility] [id number] [address] [place] [address] 71633Nkwwskkqv # (Auto)December 03, 2024 5:032024 5:43am0.5 10*3/uL0.0-0.8[facility] [id number] [address] [place] [address] 10453Nhjbblpqa # (Auto)January 13, 2025 10:25amSeptember 2024 12:09pm0.6 10*3/uL0.0-0.8[facility] [id number] [address] [facility] 82340Usjndcjfykh # (Auto)December 03, 2024 5:032024 5:43am0.2 10*3/uL0.0-0.45[facility] [id number] [address] [place] [address] 87062Kyzojyqpftg # (Auto)January 13, 2025 10:25amSeptember 2024 12:09pm0.3 10*3/uL0.0-0.45[facility] [id number] [address] [place] [address] 58839Jvxrporlu # (Auto)December 03, 2024 5:03amA2024 5:43am0.1 10*3/uL0.0-0.2[facility] [id number] [address] [facility] 11549Ckeaymjdl # (Auto)January 13, 2025 10:25amSeptember 2024 12:09pm0.1 10*3/uL0.0-0.2[facility] [id number] [address] [facility] 28262Uzegkhz LevelAugust 2024 5:032024 6:37am 299 mg/dLAbove high mlyrwt06-899CST recommended reference rangeRandom Glucose Reference Range is dependent on time and content of last meal. Glucose of more than 200 mg/dL in a nonstressed, ambulatory subject supports the diagnosisof Diabetes Mellitus.[facility] [id number] [address] [facility] 38457Mbyimql LevelSeptember 2024 10:25amSeptember 2024 10:35hu357 mg/dLAbove high odeuff96-242BMM recommended reference rangeRandom Glucose Reference Range is dependent on time and content of last meal. Glucose of more than 200 mg/dL in a nonstressed, ambulatory subject supports the diagnosisof Diabetes Mellitus.[facility] [id number] [address] [facility] 61762Fpnds Urea NitrogenAugust 2024 5:03ugu2024 6:37am19 mg/dL-[facility] [id number] [address] [facility] 16097Pzsrl Urea NitrogenSeptember 2024 10:25amSeptember 2024 10:56am26 mg/dLAbove high normal7-25[facility] [id number] [address] [place] 6[address]4970CreatinineAugust 2024 5:03amAugu2024 6:37am0.67 mg/dLBelow low normal0.70-1.30[facility] [id number] [address] [place] 6[address]4970CreatinineSeptember 2024 10:25amSeptember 2024 10:56am0.77 mg/dL0.70-1.30[facility] [id number] [address] [facility] 47937Vyxdlqgok GFR (CKD-EPI)December 03, 2024 5:032024 6:37am> 60.0 mL/MinHolzer Medical Center – [facility] Ctr [id number] [address] [place] 6[address]4970Estimated GFR (CKD-EPI)January 13, 2025 10:25amSeptember 2024 10:56am> 60.0 mL/MinHolzer Medical Center – [facility] [id number] [address] [place] 6[address]4970Sodium LevelAugust 2024 5:032024 6:02fd671 mmol/Z171-606PzmelvolnHolzer Medical Center – [facility] [id number] [address] [place] 6[address]49[address]Sodium LevelSeptember 2024 10:25amSeptember 2024 10:85hw869 mmol/B503-900UtobuwsjhHolzer Medical Center – [facility] [id number] [address] [facility] 39977Mzlvxewhh LevelAugust 2024 5:03ugu2024 6:37am 4.0 mmol/L3.5-5.1[facility] [id number] [address] [facility] 89026Zukodqfww LevelSeptember 2024 10:25amSeptember 2024 10:56am4.3 mmol/L3.5-5.1[facility] [id number] [address] [facility] 95642Ihlzefer LevelAugust 2024 5:03ugu2024 6:37am 101 mmol/G48-477UgreoheleHolzer Medical Center – [facility] [id number] [address] [facility] 48387Tuajztfd LevelSeptember 2024 10:25amSeptember 2024 10:99xd001 mmol/P64-846IbcbdhoxhHolzer Medical Center – [facility] [id number] [address] [facility] 88676Pislea Dioxide LevelAugust 2024 5:03ugu2024 6:37am29.1 mmol/L21.0-31.0[facility] [id number] [address] [facility] 59603Pkuiug Dioxide LevelSeptember 2024 10:25amSeptember 2024 10:56am24.6 mmol/L21.0-31.0[facility] [id number] [address] [facility] 51436Usbor GapAugust 2024 5:032024 6:37am10.9 mEq/L6.0-15.0[facility] [id number] [address] [facility] 96330Rozxy GapSeptember 2024 10:25amSeptember 2024 10:56am11.7 mEq/L6.0-15.0[facility] [id number] [address] [facility] 59089Eylzrgi LevelAugust 2024 5:03amAugu2024 6:37am 9.1 mg/dL8.6-10.3[facility] [id number] [address] [facility] 95266Ukkyfsf LevelSeptember 2024 10:25amSeptember 2024 10:56am9.5 mg/dL8.6-10.3[facility] [id number] [address] [facility] 78011Azfbv ProteinAugust 2024 5:03amAugu2024 6:37am 6.6 g/dL6.4-8.9[facility] [id number] [address] [facility] 28543Voyog ProteinNovember 2024 11:15amNovember 2024 12:12pm7.3 g/dL6.4-8.9[facility] [id number] [address] [facility] 30559YvrcadcBxmvbx 2024 5:03amAugust 2024 6:37am3.9 g/dL 3.5-5.7[facility] [id number] [address] [facility] 82249FrgalttOadixlsw 2024 11:15amNovember 2024 12:12pm4.3 g/dL3.5-5.7[facility] [id number] [address] [place] [address] 54739WxycphmqYtddsz 2024 5:03amAugust 2024 6:37am2.7 g/dLHolzer Medical Center [facility] [id number] [address] [facility] 44831YorzopktJwqqaxtp 2024 11:15amNovember 2024 12:12pm3.0 g/dLHolzer Medical Center – [facility] [id number] [address] [place] [address] 76600Snaeeex/Globulin RatioAugust 2024 5:03amAugust 2024 6:37am1.4[facility] [id number] [address] [place] [address] 71093Nvigxyy/Globulin RatioNovember 2024 11:15amNovember 2024 12:12pm1.4[facility] [id number] [address] [place] [address] 17186Mqfug BilirubinAugust 2024 5:03amAugust 2024 6:37am 0.4 mg/dL0.3-1.0[facility] [id number] [address] [place] [address] 82320Rkimc BilirubinOctober 2024 7:35amOctober 2024 8:10am 0.4 mg/dL0.3-1.0[facility] [id number] [address] [facility] 62016Sgcwe BilirubinNovember 2024 11:15amNovember 2024 12:12pm0.5 mg/dL0.3-1.0[facility] [id number] [address] [facility] 49256Bcczmk BilirubinOctober 2024 7:35amOctober 2024 8:10am0.00 mg/dLBelow low normal0.03-0.18If the DBIL is less than 0.1, IBIL is not able to becalculated.[facility] [id number] [address] [facility] 80535Teuglg BilirubinNovember 2024 11:15amNovember 2024 12:12pm0.10 mg/dL0.03-0.18[facility] [id number] [address] [facility] 36904Zjywrqtx BilirubinOctober 2024 7:35amOctober 2024 8:10am0.4 mg/dLHolzer Medical Center – [facility] [id number] [address] [facility] 43123Pplxgekf BilirubinNovember 2024 11:15amNovember 2024 12:12pm0.4 mg/dLHolzer Medical Center – [facility] [id number] [address] [facility] 90514Cbjiwfuwe Amino Transf (AST/SGOT)December 03, 2024 5:03amAugust 2024 6:37am11 U/LBelow low uunivo41-68MkmwtvvjiHolzer Medical Center – [facility] [id number] [address] [facility] 41766Deenvkjgo Amino Transf (AST/SGOT)January 27, 2025 7:35am January 27, 2025 8:10am14 U/U32-90KfxlkdgnjHolzer Medical Center – [facility] [id number] [address] [facility] 54102Cjniongdi Amino Transf (AST/SGOT)February 25, 2025 11:15am February 25, 2025 12:12pm18 U/A60-32XgonhgkgrHolzer Medical Center – [facility] [id number] [address] [facility] 17362Dwszexk Aminotransferase (ALT/SGPT)December 03, 2024 5:03am December 03, 2024 6:37am12 U/L7-52[facility] [id number] [address] [facility] 71092Kwyprqa Aminotransferase (ALT/SGPT)February 25, 2025 11:15am February 25, 2025 12:12pm21 U/L7-52[facility] [id number] [address] [place] [address] 74254Lkklsitm PhosphataseAugust 2024 5:03amA2024 6:37am78 U/Q96-477JrhaadhhfHolzer Medical Center – [facility] [id number] [address] [facility] 86297Roypjskj PhosphataseOctober 2024 7:35amOctober 2024 8:10am62 U/O76-870OdwzopggmHolzer Medical Center – [facility] [id number] [address] [place] [address] 32935Ihgsqwwo PhosphataseNovember 2024 11:15amNovember 2024 12:12pm74 U/O08-085RvjaqqdviHolzer Medical Center – [facility] [id number] [address] [place] [address] 84706Bjmbjaj LevelAugust 2024 5:03amA2024 6:37am52 U/G40-644MwaelsleaHolzer Medical Center – [facility] [id number] [address] [place] [address] 62327Mwxqoxf LevelOctober 2024 7:35amOctober 2024 8:10am58 U/X96-272FwhuifbrvHolzer Medical Center – [facility] [id number] [address] [place] [address] 64324GdlemaCbroil 2024 5:03amA2024 6:37am59.0 U/L 11.0-82.0[facility] [id number] [address] [place] [address] 15372NrgjzhPvvqvom 2024 7:35amOctober 2024 8:10am52.0 U/L 11.0-82.0[facility] [id number] [address] [place] [address] 41780QbjehySgirdcoe 2024 11:15amNovember 2024 12:34bt722.0 U/LAbove high .0-82.0[facility] [id number] [address] [facility] 36199Uvwveildkbr LevelAugust 2024 5:2024 6:58ih811 mg/vQ421-521Krdj less than 200 mg/dl low riskChol 201-239 mg/dl borderline riskChol 240 mg/dl and greater highriskHolzer Medical Center – [facility] [id number] [address] [facility] 40331CUO CholesterolAugust 2024 5:2024 6:37am 26 mg/cT02-65AOO CHOL ATP-III CLASSIFICATION Cardiovascular RiskHDL > or equal to 60 mg/dL LOWHDL < 40 mg/dL [facility] [id number] [address] [facility] 12709Acptrfweaxpid LevelAugust 2024 5:2024 6:90kg120 mg/dLAbove high normal0-149If the triglyceride result is greater than 400, LDLC and related calculations cannot be calculated and resulted.TRIG ATP III CLASSIFICATIONTRIG less than 150 mg/dL NormalTRIG 150-199 mg/dL Borderline highTRIG 200-500 mg/dL High TRIG greater than 500 mg/dL Very highStandard traceable to the Center for Disease Conrtrol and Prevention (CDC) test method. [facility] [id number] [address] [facility] 69677RTW Cholesterol (Measured)December 03, 2024 5:2024 6:53am92 mg/dL0-100LDL ATP III CLASSIFICATIONLDL less than 100 mg/dL OptimalLDL 100-129 mg/dL Near or above hdozfdfFQA754-488 mg/dL Borderline highLDL 160-189 mg/dL HighLDL greater than 189 mg/dL [facility] [id number] [address] [facility] 89406COB Cholesterol, CalculatedAu2024 5:2024 6:37am15 mg/dL0-100LDL ATP III CLASSIFICATIONLDL less than 100 mg/dL OptimalLDL 100-129 mg/dL Near or above dlyriqlJWR014-263 mg/dL Borderline highLDL 160-189 mg/dL HighLDL greater than 189 mg/dL Very highHolzer Medical Center [facility] [id number] [address] [facility] 45567GHMT CholesterolAugust 2024 5:032024 6:37amTNPTest not performedHolzer Medical Center – [facility] [id number] [address] [facility] 01515Ckioopkwmef/HDL RatioAugust 2024 5:032024 6:37am7.1<5.0[facility] [id number] [address] [facility] 87080Dheuhaka Creatinine Clearance (ChemAugust 2024 5:03am December 03, 2024 6:37amN/[facility] [id number] [address] [place] [id number] Creatinine Clearance (ChemSeptember 2024 10:25am January 13, 2025 10:56amN/[facility] [id number] [address] [facility] 22099Cjchkofddo D7tKshuam 2024 5:032024 11:18am 11.7 %Above high normal4.3-5.6Increased risk for diabetes: 5.7 - 6.4diabetes: >6.4glycemic control for adults with diabetes: <7.0[facility] [id number] [address] [facility] 10448Xgrzoqwxc Average GlucoseAugust 2024 5:032024 11:60dz193 mg/dLHolzer [facility] [id number] 1[address] [facility] [address]Hdphr Amphetamines ScreenOctober 2024 7:20amOctober 2024 8:30amNegativeNegativeHolzer Medical Center – [facility] [id number] 1111 [facility] [address]40[address]Hreha Barbiturates ScreenOctober 2024 7:20amOctober 2024 8:30amNegativeNegativeHolzer Medical Center – [facility] [id number] 1111 [facility] [address]1274Ujbum Benzodiazepines ScreenOctober 2024 7:20amOctober 2024 8:30amNegativeNegativeHolzer Medical Center – [facility] [id number] 1111 [facility] [address]Htgya Cocaine ScreenOctober 2024 7:20amOctober 2024 8:30amNegativeNegativeHolzer Medical Center – [facility] [id number] 1111 [facility] 79528Rqfjk Opiates ScreenOctober 2024 7:20amOctober 2024 8:30amNegativeNegativeHolzer Medical Center – [facility] [id number] 1111 [facility] [address]4564Fkzai Phencyclidine ScreenOctober 2024 7:20amOctober 2024 8:30amNegativeNegativeHolzer Medical Center – [facility] [id number] 1111 [facility] [address]Uweig Marijuana (THC) ScreenOctober 2024 7:20amOctober 2024 8:30amPositiveAbove high normalNegativeThese are unconfirmed results and should not be used for legal purposes. Drug Cut-Off Concentration: AMPH 1000 ng/mL RUDDY 200 ng/mL COLLIN 200 ng/mL COCM 300 ng/mL OP 300 ng/mL PCP 25 ng/mL THC 20 ng/mLHolzer Medical Center – [facility] [id number] 1111 [facility] [address]Ehfmctj GlucoseOctober 2024 9:56amOctober 2024 10:92xs614 mg/dLRandom Glucose Reference Range is dependent on time and content of last meal. Glucose of more than 200 mg/dL in a nonstressed, ambulatory subject supports the diagnosis of Diabetes Mellitus.Point of Care testingBedside Glucose CommentOctober 2024 7:35amOctober 2024 7:21wtVxx0: cleaned meterPoint of Care testing Vital Signs Vital Reading Result Reference Range Collection Date/Time Height 71 [in_i] January 27, 2025 7:69uiYngxyi849.96 kgOctober 2024 7:40amBody Temperature 97.9 [degF]97.6-99.0October 2024 10:17amHeart Rate82 /xsq37-589Pzrgnup 2024 10:57amRespiratory rate16 /lad23-85Rtjszzo 2024 10:57amOxygen saturation by Pulse megvijdp91 %95-100October 2024 10:57amBP Lmlsmnfk186 mm[Hg]100-140October 2024 10:57amBP Jczhhuhed17 mm[Hg]60-100October 2024 10:57amInhaled oxygen flow rate8 L/minOctober 2024 9:52am Advance Directives Advance Directive Response Recorded Date/ Time Advance Directives No February 14, 2018 8:20am Insurance Providers Guarantor Miguel Shah Address [address] [facility] [place] [address]Tfsnjqa Info.Home Phone: Coverage Status Update:2024 Payer Group Member ID Coverage Type Subscriber Relationship to Subscriber Effective Date Expiration Date Lucas CASE/HALIMA nullSelfMedicaid [place] [id number] W [place] Id: [id number] 04/[address] [facility] [place] [address] Home Phone: Email: Declined [id number]ce Medicaid [place] [id number] W [place] Id: [id number] 04/25 [facility] [place] [address] Home Phone: Email: Declined [id number] [facility] [place] Id: [id number] W [place] Id: [id number] [address]/25 [facility] [place] [address] Home Phone: Email: Declined [id number] Medical Center [place] Id: [id number] W [place] Id: [id number] [address]/25 [facility] [place] [address] Home Phone: Email: Declined [id number] Memorial Hospital Aur[place]ar Avila Id: [id number] W [place] Id: [id number] [address]/25 [facility] [place] [address] Home Phone: Email: Declined [id number]/HFA/FAP Active 60% [address] [place] [address] Work Phone: [phone] 9830TpVee24yaima Avila Id: [id number] W [place] Id: [id number] [address] [place] [address] Home Phone: Email: Declined [id number] 2018 Encounters Encounter Location(s) Arrival/Admit Date Discharge/Departure Date Discharge/Departure Disposition Provider(s) Departed Clinical -Lab [facility] December 03, 2024 5:51am December 03, 2024 5:52am Discharged to home care or self care (routine discharge) Carroll Khan DO [facility] Clinical -Pre-Surgica l Testing January 13, 2025 10:56am January 13, 2025 10:57am Discharged to home care or self care (routine discharge) Shaji Cabral DO [facility] Surgical Day Care Surgery [facility] January 27, 2025 8:09am January 27, 2025 12:25pm Discharged to home care or self care (routine discharge) Shaji Cabral DO [facility] Clinical -Lab [facility] February 25, 2025 11:04am February 25, 2025 11:05am Discharged to home care or self care (routine discharge) Shaji Cabral DO Plan of Treatment Future Tests Future scheduled test information is unavailable Pending Tests Pending diagnostic test information is unavailable Future Visits Future appointment information is unavailable Future Procedures Procedure Name Ordered Date Scheduled Date Post Anesthesia Tracer order January 27, 2025 8 :08am January 27, 2025 8:15am Discharge Order January 27, 2025 12:01pm Octobe r 2024 12:01pm Future Medications Future medication information is unavailable Patient Instructions Instruction Admit Date Know your Meds January 27, 2025 8: 09am Goals Acute Goals Author Authored Date Experience reduced anxiety * Identifies current stressors * Develops effective coping behaviors * Uses support services as appropriateAlexandrea [facility] 12:01pmRemain free of complications Alexandrea [facility]October 2024 12:01pmUnderstand preop/postop care/sensations * Verbalizes understanding of surgical procedure * Verbalizes understanding of sensations following surgery * Verbalizes understanding of post-op treatment [facility] 20[facility] 12:01pmReport pain at tolerable level * Uses pain scale appropriately * Identify options for pain control - Analgesics - Narcotics - Non-medication measuresMer[facility] 2024 12:01pmAbsence of imbalanced fluid volume s/s [facility] 2024 12:01pmAbsence of physical injury [facility] 2024 12:01pmAbsence of surgical site infection [facility] 2024 12:01pm
[2025-02-28] VITALS (13 sets, daily range): BP systolic 122–198; BP diastolic 69–87; PULSE 76; TEMP 36.9; O2SAT 96–100; BMI 32.2
--- NOTE | 2025-02-28 03:14 | PC.NURSE ---
this patient drives himself of abdomen pain onset 01/27/2025 and at that time patient had his gall bladder removed by Dr Nation this patient rates his pain 5/10 sharp and last bowel movement on 02/25/2025. this patient voices no other concerns, needs and shows no signs of distress
--- NOTE | 2025-02-28 03:26 | ED.ABDPAIN1 ---
HPI - Abdominal Pain General Chief Complaint: Abdominal Pain Stated Complaint: ABDOMINAL PAIN Time Seen by Provider: 02/28/25 03:09 Source: patient Mode of arrival: walk-in Limitations: no limitations History of Present Illness HPI narrative: 54-year-old male presents for evaluation of epigastric abdominal pain with intermittent nausea. He was seen here recently at the request of his family physician he had a CT scan done which showed gallstones. He had his gallbladder removed at [facility] by Dr. Ureña on 01/27/25. All up appointment. He states everything has been going well but he started having epigastric abdominal pain again and his doctor referred him back to the emergency department. He denies that his doctor has done any blood work or other testing on him. He does have a history of pancreatitis. 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 He states he has been eating more than normal and has been gaining weight. He is currently not having any pain nausea or vomiting. His last bowel movement was yesterday. He points to the epigastrium of the area of greatest pain. He denies any radiation of it into his chest, back or shoulder. His surgical incision sites are well-healed. Related Data Home Medications ?Medication ?Instructions ?Recorded ?Confirmed fenofibrate 160 mg tablet mg 12/13/24 lisinopril 10 mg tablet mg 12/13/24 pravastatin 20 mg tablet mg 12/13/24 Allergies Allergy/AdvReac Type Severity Reaction Status Date / Time No Known Drug Allergies Allergy Verified 02/28/25 03:07 Review of Systems ROS Status of ROS 10 or more systems reviewed and unremarkable except as noted in history and below [facility] Medical History (Updated 02/28/25 @ 05:03 by Marisol Grossman MD) Pancreatitis ?K85.90 - Acute pancreatitis without necrosis or infection, unspecified (ICD-10) Social History Little interest or pleasure in doing things: not at all Feeling down, depressed, or hopeless: not at all Exam Narrative Exam Narrative: Vital signs and Nursing Notes reviewed: Afebrile with normal pulse, blood pressure is mildly elevated 148/87, he is not hypoxic with pulse ox of 98% on room air General: Awake male, he is awake, alert, oriented, no acute distress, lying comfortably on the stretcher HEENT: Normocephalic atraumatic, mucous membranes are moist and pink, eyes are clear, normal conjunctiva, vision is grossly intact, posterior pharynx is normal in appearance. No scleral icterus Neck: Supple, no meningeal signs, no anterior or posterior cervical lymphadenopathy Chest: Lungs are clear to auscultation with good air entry, there is no wheezing rhonchi or rales appreciated no accessory muscle use, patient is speaking in complete sentences-no chest wall tenderness to palpation CVS: Regular rate and rhythm S1-S2, no murmurs rubs or gallops, pulses are brisk and equal bilaterally ABD: Obese,Soft, nondistended, mild epigastric tenderness, no rebound guarding or rigidity, bowel sounds are normal, rectus diastasis present when sitting up Extremities: Moving all extremities, no lower extremity tenderness or swelling noted, negative Homans' sign, pulses are brisk and equal bilaterally Skin: Normal in appearance without rash,pallor, petechiae or purpura Neuro: No focal deficits Constitutional Vital Signs, click to edit/add: Last Vital Signs Temp 98.4 F 02/28/25 03:08 Pulse 76 02/28/25 03:08 Resp 18 02/28/25 03:08 BP 124/82 02/28/25 04:00 Pulse Ox 97 02/28/25 04:20 O2 Del Method Room Air 02/28/25 03:08 Course Vital Signs Vital signs: Vital Signs Pulse Oximetry 98 02/28/25 03:04 Temperature 98.4 F 02/28/25 03:08 Pulse Rate 76 02/28/25 03:08 Respiratory Rate 18 02/28/25 03:08 Blood Pressure 124/82 02/28/25 04:00 Pulse Oximetry 97 02/28/25 04:20 Oxygen Delivery Method Room Air 02/28/25 03:08 MDM - Abdominal Pain MDM Narrative Medical decision making narrative: This 54-year-old male who states he had a history of alcohol use 15 years ago and history of pancreatitis who had his gallbladder removed on January [address] Ureña at [facility] presents for evaluation of intermittent epigastric abdominal pain. He states at times he has nausea but has not been vomiting. His appetite has been normal. He has been eating more than usual and states he has been gaining weight. He states he saw his physician who referred him to the emergency department but did not perform any lab testing or radiologic studies. He explained to the nurse that did his intake that he was cleared to go back to work but then his pain started back up. His abdomen is soft with some mild epigastric tenderness. Remainder of his exam is normal. His vital signs are stable. He does not have any scleral icterus. Routine labs were ordered. He has a normal white count and stable hemoglobin. Electrolytes are normal with a glucose of 239. Liver function tests are normal. Lipase is elevated at 338. CT scan from November of this year showed a normal pancreas and questionable gallbladder wall thickening and gallstones. His lipase was mildly elevated at that time at 209. Abdominal series x-ray was ordered and reviewed by myself. It shows a large amount of stool with a nonspecific bowel gas pattern and no free air or other notable abnormalities. He was medicated emergency department with a GI cocktail and Pepcid. The results of his labs and x-ray studies were discussed with him. At this time I do not think that he requires any additional studies. He will be referred to his family physician for further evaluation and I will also refer him to GI. He has never had a endoscopy and his pain is strictly in the epigastrium, not left upper quadrant and nonradiating. Additionally the patient is not having any pain or nausea vomiting at this time. He will be discharged home with a prescription for Protonix and Colace. Lab Data Labs: Lab Results 02/28/25 Range/Units 03:45 WBC 12.5 H (4.0-11.0) 10^3/uL RBC 5.07 (4.70-6.10) 10^6/uL Hgb 14.5 (14.0-18.0) g/dL Hct 43.5 (42.0-54.0) % MCV 85.8 (80.0-94.0) fL MCH 28.6 (25.9-34.0) pg MCHC 33.3 (29.9-35.2) g/dL RDW 14.3 (11.0-15.0) % Plt Count 182 (150-450) 10^3/uL MPV 11.4 (9.5-13.5) fL Neut % (Auto) 68.6 (43.0-75.0) % Lymph % (Auto) 20.7 (20.5-60.0) % [place]wood % (Auto) 6.6 (1.7-12.0) % Eos % (Auto) 2.0 (0.9-7.0) % Baso % (Auto) 0.6 (0.2-2.0) % Neut # (Auto) 8.6 H (1.4-6.5) 10^3/uL Lymph # (Auto) 2.6 (1.2-3.8) 10^3/uL [place] # (Auto) 0.8 (0.3-0.8) 10^3/uL Eos # (Auto) 0.3 (0.0-0.7) 10^3/uL Baso # (Auto) 0.1 (0.0-0.1) 10^3/uL Abs Immat Gran (auto) 0.19 H (0.00-0.03) 10^3/uL Imm/Tot Granulo (auto) 1.5 H (0.0-0.5) % Sodium 132 L (136-145) mmol/L Potassium 4.5 (3.5-5.1) mmol/L Chloride 100 (98-107) mmol/L Carbon Dioxide 25.5 (21.0-32.0) mmol/L Anion Gap 11.0 BUN 24.0 H (7.0-18.0) mg/dL Creatinine 0.79 (0.70-1.30) mg/dL Est GFR ( Amer) >60 (>=60 mL/min/1.73m^2) Est GFR (Non-Af Amer) >60 (>=60 mL/min/1.73m^2) BUN/Creatinine Ratio 30.4 Glucose 239 H (74-106) mg/dL Calcium 8.9 (8.5-10.1) mg/dL Total Bilirubin 0.4 (0.2-1.0) mg/dL AST 15 (15-37) U/L ALT 25 (16-63) U/L Alkaline Phosphatase 72 (46-116) U/L Total Protein 7.2 (6.4-8.2) g/dL Albumin 3.4 (3.4-5.0) g/dL Globulin 3.8 g/dL Albumin/Globulin Ratio 0.9 Lipase 338.0 H (16.0-77.0) U/L Discharge Plan Discharge Chief Complaint: Abdominal Pain Clinical Impression: Abdominal pain, Abdominal pain, epigastric, Constipation Patient Disposition: Home, Self-Care Time of Disposition Decision: 04:58 Condition: Good Prescriptions / Home Meds: No Action lisinopril 10 mg tablet pravastatin 20 mg tablet fenofibrate 160 mg tablet Print Language: Hungarian Instructions: Constipation (ED), Abdominal Pain (ED), Epigastric Pain (ED) Referrals: Olivia Henderson DO [Physician] - 1 week NOELLE VELA [Primary Care Provider, Family Practice] - 1 week
--- OUTSIDE RECORDS SUMMARY | 2025-02-28 03:40 | XMS_ITS | Encounter Summary ---
Author Organization [facility] Address [address] [place] [address] Care Team Providers Care Associate Professor Of Forestry Name Role Phone Carroll Khan MD Primary Care Provider [phone] Encounter Details DateTypeDepartmentCare Team (Latest Contact Info)Abkvtuzxjel84/04/2025Telephone [facility] [address] [facility] [address] [place] [phone] Shaji Cabral DO [address] [facility] [address] [place] [address] Social History Tobacco UseTypesPacks/DayYears UsedDateSmoking Tobacco: Every [...] relatives?Twice a week11/24/2023How often do you attend restoration or jain services?Never11/24/2023o you belong to any clubs or organizations such as restoration groups, unions, fraternal or athletic aaron ups, [...] very hard 11/24/2023HQ-2AnswerDate RecordedPatient Health Questionnaire-2 Score0 12/05/2023[facility] [place] [facility] Occupational [facility] - Occupational Stress QuestionnaireAnswerDate RecordedDo you feel stress - tense, restless, nervous, or anxious, or unable to sleep at night because yourmind is troubled all the time - these days?To some jvjnxk0311/24/2023Exercise Vital SignAnswerDate Recorded On average, how many [...] were you homeless or living in a penitentiary (including now)?No11/24/2023Sex and Gender InformationValueDate Recorded Sex Assigned at BirthNot on fileLegal NvpLywi3207/06/2022 7:09 PM EDTGender IdentityNot on fileSexual OrientationNot on filedocumented as of this encounter Miscellaneous Notes * Telephone Encounter - Brittanie Shaila - 02/25/2025 10:37 AM EST Return to work documented in this encounter Plan of Treatment DateTypeDepartmentCare Team (Latest Contact Info)Tpyjiwsejsi85/11/2025 2:30 PM ESTOffice Visit [facility] [address] [phone] Shaji Cabral DO [address] [address] documented as of this encounter Visit Diagnoses Not on filedocumented in this encounter Care Teams Team MemberRelationshipSpecialtyStart DateEnd Date Carroll Khan MD [address] [place] [id number] PCP - GeneralFamily Medicine09/13/22documented as of this encounter
--- OUTSIDE RECORDS SUMMARY | 2025-02-28 03:40 | XMS_ITS | Clinical Summary ---
Author Organization [facility] Address [address] [facility] [address] Care Team Providers Care Hospital Unit Clerk Name Role Phone Carroll Khan MD Primary Care Provider [phone] Allergies Active AllergyReactionsCriticalityNoted DateCommentsMorphineHeadacheLow 06/07/2023 Medications MedicationSigDispense QuantityRefillsLast FilledStart DateEnd DateStatus glucose blood (True Metrix Blood Glucose Test) test strip Active insulin pen needle (pen needle, diabetic) 31G X 8 mm misc Active fenofibrate (Triglide) 160 MG tablet Indications:Mixed hyperlipidemiaTake 1 tablet (160 mg) by mouth 1 (one) time each day at the same time. 30 tablet ctive pravastatin (Pravachol) 20 MG tablet Indications:Mixed hyperlipidemiatake 1 tablet by mouth once daily AT THE SAME TIME EACH DAY 120 tablet 06/29/2023ctive insulin lispro (HumaLOG KWIKPEN) 100 UNIT/ML injection Indications:Type 2 diabetes mellitus with polyneuropathy (HCC)Inject 10 units QAC (max daily 50 units) 15 mL ctive gabapentin (Neurontin) 300 MG capsule 08/16/2023ctive Continuous Glucose Sensor (FreeStyle Mary 3 Sensor) misc Indications:Type 2 diabetes mellitus with polyneuropathy (HCC)Inject 1 Device under the skin every 14 (fourteen) days 6 each ctive insulin glargine (Lantus SoloStar) 100 UNIT/ML pen Indications:Type 2 diabetes mellitus with polyneuropathy (HCC)Inject 50 Units under the skin Daily 15 mL ctive lisinopril 10 MG tablet Take 10 mg by mouth Daily5Active Active Problems ProblemNoted DateDiagnosed DateGeneralized abdominal pain02/25/2025History of wchaofqbcgnq85/03/2025alculus of gallbladder with acute on chronic cholecystitis without tyzgfrfcelp41/03/2025Type 2 diabetes mellitus with hyperglycemia, with long-term current use of ydqvfxw4812/05/2023Long-term insulin use01/13/2023urrent nywlgd2111/15/2022 Overview (11/15/2022): Added secondary to documentation in Social History. Verruca hmxvqyxks54/21/2023ontracture, left ankle09/11/2022ontusion of foot 09/11/2022Type 2 diabetes mellitus with paiqywacqasejd52/21/2023 Assessment & Plan (12/05/2023 1:53 PM EDT): During the appointment today all pertinent labs, imaging, health maintenance, and glucose readings were reviewed. Encouraged to check blood glucose throughout the day with some fasting and some PP readings. They are to bring their glucose meter/cgm in to all appointments. All of the patients questions, treatment options, and current care plan and goals were discussed. Acopy of this along with pertinent instructions were [...] really needs to work on improving his dietand taking medications consistently to improve control. If he has a hard time getting his meds through the pharmacy he can contact our office. Unfortunately he needs follow the insurance company/pharmacy guidelines even though he doesn't like this. His life and health depends on him taking his medic ations regularly. Will try the freestyle mary 3 cgm as this may be [...] current care plan and goals were discussed. Acopy of this along with pertinent instructions were [...] snacks. They should also avoid any sugary drinks., Discussed importance of checking blood glucose regularly [...] current care plan and goals were discussed. Acopy of this along with pertinent instructions were [...] current care plan and goals were discussed. Acopy of this along with pertinent instructions were [...] order to make better decisions for him. Heis to avoid all sugary drinks. Will try and get him a cgm. Essential trkkbxnqyzfl95/21/2574Flqcwvkwijktnw65/21/2023Obesity due to excess lmwiajwv58/21/2023Onychomycosis due to kykkzcnnzqin19/21/2023ain in limb 09/11/2022lantar fascial uzygatowpcrd79/21/5051Kqqhgjqa33/15/2019Infected /15/2019 Resolved Problems ProblemNoted DateDiagnosed DateResolved DateDiabetic ssvslcayungklu2023 11/15/2022 Encounters DateTypeDepartmentCare YoykLbnxivmuoqe59/04/2025 10:15 AM ESTOffice Visit [facility] [address] [place] [phone] Shaji Cabral, DO History of pancreatitis (Primary Dx); Calculus of gallbladder with acute on chronic cholecystitis without obstruction; Generalized abdominal pain02/25/2025External Result Encounter [facility] Unsolicited Shaji Cabral, DO 02/25/2025Telephone [facility] [address] [place] [address] [address] [place] [address] Shaji Cabral, DO 02/25/20258135Stettx45/03/7172Prqewk62/03/2025Telephone [facility] [address] [place] [address] [place], [place] Severe pain02/19/2025 9:00 AM EDTOffice Visit [facility] [address] [place] [address] Shaji Cabral, DO Calculus of gallbladder with acute on chronic cholecystitis without obstruction (Primary Dx); History of rrjjdcazvjqp40/29/2025Telephone [facility] [address] [place] [address] Shaji Cabral, DO 02/19/20257927Thhurw88/20/2025Telephone [facility] [address] [place] [address] Shaji Cabral, DO 02/05/2025 9:00 AM EDTOffice Visit [facility] [address] [place] [address] Shaji Cabral, DO Calculus of gallbladder with acute on chronic cholecystitis without obstruction (Primary Dx)02/05/20256747Xruvgc64/09/2025Orders Only [facility] [address] [place] [address] Shaji Cabral, DO 01/27/2025External Result Encounter [facility] Unsolicited Shaji Cabral, DO 01/27/2025External Result Encounter [facility] Unsolicited Shaji Cabral, DO 01/27/2025External Result Encounter [facility] Unsolicited Shaji Cabral, DO 01/15/20251446Hokfxf10/22/2025External Result Encounter [facility] Unsolicited Shaji Cabral, DO 01/13/2025External Result Encounter [facility] Unsolicited Shaji Cabral, DO 01/13/2025External Result Encounter [facility] Unsolicited Shaji Cabral, DO 12/25/2024 9:45 AM EDTConsult [facility] [address] [facility] [address] [place] [phone] Shaji Cabral, History of pancreatitis (Primary Dx); Calculus of gallbladder with acute on chronic cholecystitis without obstruction 12/25/2024Orders Only [facility] [address] [facility] [address] [place] [phone] Ascencion Martinez MD 12/25/20240293Azuqiu27/02/2025Travelfrom Last 3 Months Immunizations ImmunizationAdministration DatesNext PpjJWQ2801/19/2001 Family History RelationNameStatusCommentsFatherAliveMotherAlive Social History Tobacco UseTypesPacks/DayYears UsedDateSmoking Tobacco: Every DayCigarettes Passive Smoke Exposure: CurrentSmokeless Tobacco: Never Tobacco Cessation:Ready to Q uit: Not Asked; Counseling Given: Yes Alcohol UseStandard Drinks/WeekCommentsNot Currently0 (1 standard drink = 0.6 oz pure alcohol)B1300 Health LiteracyAnswerDate RecordedHow often do you need to have someone help you when you read instructions, pamphlets, or other written material from your doctor or pharmacy?Never11/24/2023Social Connection and Isolation PanelAnswerDate RecordedIn a typical week, how many times do you talk on the phone with family, friends, or neighbors?More than three times a week 11/24/2023How often do you get together with friends or relatives?Twice a week 11/24/2023How often do you attend orthodox or samaritan services?Never11/24/2023o you belong to any clubs or organizations such as orthodox groups, unions, fraternal or athletic groups, or school groups?No11/24/2023How often do you attend meetings of the clubs or organizations you belong to?Never11/24/2023re you , , , , never , or living with a partner?Never xrqcmip1511/24/2023UDIT-CAnswerDate RecordedQ1: How often do you have a drink containing alcohol?Never11/24/2023Q2: How many drinks containing alcohol do you have on a typical day when you are drinking?Patient does not drink11/24/2023Q3: How often do you have six or more drinks on one occasion? Never11/24/2023Overall Financial Resource Strain (CARDIA)AnswerDate RecordedHow hard is it for you to pay for the very basics like food, housing, medical care, and heating?Not very hard11/24/2023HQ-2AnswerDate RecordedPatient Health Questionnaire-2 Cnzfh898FinSt. Vincent [facility] - Occupational Stress QuestionnaireAnswerDate RecordedDo you feel stress - tense, restless, nervous, or anxious, or unable to sleep at night because yourmind is troubled all the time - these days?To some fpvtxk8411/24/2023Exercise Vital Sign AnswerDate RecordedOn average, how many days per week do [...] time?No11/24/2023Number of Times Moved in the Last Year Not on file11/24/2023t any time in the past 12 months, were you homeless or living in a assisted (including now)?No11/24/2023Sex and Gender InformationValue Date RecordedSex Assigned at BirthNot on fileLegal SzlMvjo4007/06/2022 7:09 PM EDT Gender IdentityNot on fileSexual OrientationNot on file Last Filed Vital Signs Vital SignReadingTime TakenCommentsBlood Beswecdt963/7809 9:42 AM EDT Txjgc8941 11:29 AM RXLBjiebcqqwpe32.2 ??C (97.1 ??F)12/05/2023 11:29 AM EDTRespiratory Rate--Oxygen Otvutjdebw55%12/05/2023 11:29 AM EDTInhaled Oxygen Concentration--Ockvtl319 kg (227 lb)02/25/2025 10:25 AM PNIMsiuzs570.3 cm (5' 11 )02/25/2025 10:25 AM ESTBody Mass Index31.6602/25/2025 10:25 AM EST Plan of Treatment DateTypeDepartmentCare Team (Latest Contact Info)Drjemuspaxx48/11/2025 2:30 PM ESTOffice Visit [facility] [address] [facility] [address] [place] [phone] Shaji Cabral, DO [address] [facility] [address] [place] [address] Procedures Procedure NamePriorityDate/TimeAssociated DiagnosisCommentsLIPASERoutine 02/25/2025 11:15 AM EST HEPATIC FUNCTION YCHIYTpkztxr71/04/2025 11:15 AM EST GLUCOSE POCT AAVHNPQAMYEFnckrtq93/06/2025 10:56 AM EDT GENERAL JAREZDUZKTqvwghy17/06/2025 10:50 AM KMNAMZGEVNDNR70/06/2025 8:35 AM EDT DFTKGRXFUJQ42/06/2025 8:35 AM EDT ALKALINE UHFRDNBIWNUGDYS88/06/2025 8:35 AM EDT ASPARTATE AMINO PBEVFCJMJNAKJSS50/06/2025 8:35 AM EDT BILIRUBIN, WTZBAZLNHGVHZPJQ34/06/2025 8:35 AM EDT GLUCOSE POCT RKNJOMHSWWHBxvsayf80/06/2025 8:35 AM EDT CBC WITH AUTO PPSNJATEFGCBZxqwmam30/22/2025 11:25 AM EDT BASIC METABOLIC GJUOHBnwjhan62/22/2025 11:25 AM EDT ECG 12-LEAD01/13/2025 11:[address] ABDOMEN PELVIS W IV IBFAEBSQEwgnmda30/03/2025 3:30 PM EDTfrom Last 3 Months Results * (ABNORMAL) Lipase (02/25/2025 11:15 AM EST) Only the most recent of2 resultswithin the time period is included. ComponentValueRef RangeTest MethodAnalysis TimePerformed AtPathologist Signature VWQYRQ180.0(H)11.0 - 82.0 U/L104/27/2024 12:12 PM [facility] CtrSpecimen (Source)Anatomical Location / LateralityCollection Method / Volume Collection TimeReceived TimeOtherTopography unknown / Ioxwyrj2002/25/2025 11:15 AM EST02/25/2025 11:15 AM EST Narrative Authorizing ProviderResult TypeResult StatusPaul Larissa [facility] Centerkourtney DOL BLOOD ORDERABLES Edited Result - FinalPerforming OrganizationAddressCity/State/ZIP CodePhone Number [facility] [address] [place] [address], [facility] [address] [place] [address] * Hepatic function panel (02/25/2025 11:15 AM EST)ComponentValueRef RangeTest MethodAnalysis TimePerformed AtPathologist SignatureTOTAL PROTEIN7.36.4 - 8.9 g/dL02/25/2025 12:12 PM [facility] CtrALBUMIN LEVEL4.33.5 - 5.7 g/dL02/25/2025 12:12 PM [facility] CtrGLOBULIN3.0g/dL 02/25/2025 12:12 PM [facility] CtrALBUMIN/GLOBULIN RATIO1.4 02/25/2025 12:12 PM [facility] CtrBILIRUBIN,TOTAL0.50.3 - 1.0 mg/dL02/25/2025 12:12 PM [facility] CtrBILIRUBIN,DIRECT 0.100.03 - 0.18 mg/dL02/25/2025 12:12 PM [facility] Ctr BILIRUBIN,INDIRECT0.4mg/dL02/25/2025 12:12 PM [facility] CtrASPARTATE AMINO FSMDVFSQWPX5628 - 39 U/L104/27/2024 12:12 PM [facility] CtrALANINE STAKPPJDYQJFFJKL922 - 52 U/L104/27/2024 12:12 PM [facility] CtrALKALINE GJONZHBATOK4592 - 104 U/L104/27/2024 12:12 PM [facility] CtrSpecimen (Source)Anatomical Location / LateralityCollection Method / VolumeCollection TimeReceived TimeOther Topography unknown / Cswhfta1202/25/2025 11:15 AM EST02/25/2025 11:15 AM EST Narrative Authorizing ProviderResult TypeResult StatusPaul C Marianna [facility] BLOOD ORDERABLES Edited Result - FinalPerforming OrganizationAddressCity/State/ZIP CodePhone Number [facility] [address] [place] [address], [facility] [address] [place] [address] * GLUCOSE POCT GLUCOMETERS (01/27/2025 10:56 AM EDT) Only the most recent of2 resultswithin the time period is included. ComponentValueRef RangeTest MethodAnalysis TimePerformed AtPathologist Signature GLUCOSE POC BGEXPIIEVAW963uc/dL01/27/2025 11:03 AM EDTFIRELANDSComment: Random Glucose Reference Range is dependent on time and content of last meal. Glucose of more than 200 mg/dL in a nonstressed, ambulatory subject supports the diagnosis of Diabetes Mellitus. Specimen (Source)Anatomical Location / LateralityCollection Method / Volume Collection TimeReceived TimeBlood (Blood)01/27/2025 10:56 AM EDT1 11:02 AM EDT Narrative Authorizing ProviderResult TypeResult StatusPaul C Laffay DOLAB BLOOD ORDERABLES Final ResultPerforming OrganizationAddressty/State/ZIP CodePhone Number [address] [place] [address], * GENERAL PATHOLOGY (01/27/2025 10:50 AM EDT) Narrative Authorizing ProviderResult TypeResult StatusPaul C Laffay DOCLINISYNCFinal Result * ASPARTATE AMINO TRANSFERASE (01/27/2025 8:35 AM EDT)ComponentValueRef Range Test MethodAnalysis TimePerformed AtPathologist SignatureASPARTATE AMINO OLHSIXVHKGB3906 - 39 U/L1 9:10 [facility] Specimen (Source)Anatomical Location / LateralityCollection Method / Volume Collection TimeReceived TimeOtherTopography unknown / Dzmiwyg0701/27/2025 8:35 AM EDT1 8:41 AM EDT Narrative Authorizing ProviderResult TypeResult StatusPaul C Laffay DOLAB BLOOD ORDERABLES Final ResultPerforming OrganizationAddressCity/State/ZIP CodePhone Number [facility] [address] [place] [address], [facility] [address] [place] [address] * (ABNORMAL) Bilirubin, total and direct (01/27/2025 8:35 AM EDT)ComponentValue Ref RangeTest MethodAnalysis TimePerformed AtPathologist Signature BILIRUBIN,TOTAL0.40.3 - 1.0 mg/dL01/27/2025 9:10 AM EDP[facility] CtrBILIRUBIN,DIRECT0.00(L)0.03 - 0.18 mg/dL01/27/2025 9:10 AM EDT [facility] CtrComment: If the DBIL is less than 0.1, IBIL is not able to be calculated. BILIRUBIN,INDIRECT0.4mg/dL01/27/2025 9:10 AM [facility] Specimen (Source)Anatomical Location / LateralityCollection Method / Volume Collection TimeReceived TimeOtherTopography unknown / Gseisry2301/27/2025 8:35 AM EDT1 8:41 AM EDT Narrative Authorizing ProviderResult TypeResult StatusPaul C Laffay DOLAB BLOOD ORDERABLES Final ResultPerforming OrganizationAddressty/State/ZIP CodePhone Number [address] [place] [address], [facility] [address] [place] [address] * Alkaline phosphatase (01/27/2025 8:35 AM EDT)ComponentValueRef RangeTest MethodAnalysis TimePerformed AtPathologist SignatureALKALINE KFJOBYENJIB3069 - 104 U/L1 9:10 AM [facility] CtrSpecimen (Source) Anatomical Location / LateralityCollection Method / VolumeCollection Time Received TimeOtherTopography unknown / Hdvmqga7201/27/2025 8:35 AM EDT1 8:41 AM EDT Narrative Authorizing ProviderResult TypeResult StatusPaul C Laffay DOLAB BLOOD ORDERABLES Final ResultPerforming OrganizationAddressCity/State/ZIP CodePhone Number [address] [address], [facility] [address] [place] [address] * Amylase (01/27/2025 8:35 AM EDT)ComponentValueRef RangeTest MethodAnalysis TimePerformed AtPathologist ZnguomjwiXVLTCDD6310 - 103 U/L1 9:10 AM [facility] CtrSpecimen (Source)Anatomical Location / LateralityCollection Method / VolumeCollection TimeReceived TimeOther Topography unknown / Ddfmgfq6101/27/2025 8:35 AM EDT1 8:41 AM EDT Narrative Authorizing ProviderResult TypeResult StatusPaul C Laffay DOLAB BLOOD ORDERABLES Final ResultPerforming OrganizationAddressty/State/ZIP CodePhone Number [facility] [address] [place] [address], [facility] [address] [place] [address] * (ABNORMAL) CBC auto differential (01/13/2025 11:25 AM EDT)ComponentValueRef RangeTest MethodAnalysis TimePerformed AtPathologist RqyvraolqVEV28.3(H)4.1 - 10.5 [CFU]/mL01/13/2025 1:09 PM [facility] CtrUNCORRECTED WHITE BLOOD COUNT11.3(H)4.1 - 10.5 10*3/uL01/13/2025 1:09 PM [facility] CtrRBC5.003.90 - 5.60 10*6/uL01/13/2025 1:09 PM [facility] FnzVRHUOUKKQO81.513.0 - 17.0 g/dL01/13/2025 1:09 PM [facility] ErgNLRUXCBKDJ34.938.8 - 50.0 %01/13/2025 1:09 PM [facility] EvbDGF44.883.5 - 101 fL01/13/2025 1:09 PM [facility] AxyXEV51.027.5 - 35.2 pg01/13/2025 1:09 PM [facility] UhyBDTF36.832.5 - 35.6 g/dL01/13/2025 1:09 PM [facility] CtrRED CELL DISTRIBUTION WIDTH, RDW15.7(H)12.0 - 14.8 %01/13/2025 1:09 PM [facility] CtrPLATELET ZLWZS823637 - 450 10*3/uL01/13/2025 1:09 PM [facility] CtrMEAN PLATELET VOLUME, MPV10.06.6 - 10.1 fL01/13/2025 1:09 PM [facility] CtrNEUTROPHILS, %65.4. %01/13/2025 1:09 PM [facility] CtrLYMPHOCYTES, %25.7. %01/13/2025 1:09 PM [facility] CtrMONOCYTE/MACROPHAGE, %5.7. %01/13/2025 1:09 PM [facility] CtrEOSINOPHILS, %2.4. %01/13/2025 1:09 PM [facility] CtrBASOPHILS, %0.8. %01/13/2025 1:09 PM [facility] CtrNRBC0.20 - 0.5 /100{WBC}01/13/2025 1:09 PM [facility] CtrNEUTROPHILS7.41.8 - 7.7 10*3/uL01/13 1:09 PM [facility] CtrLYMPHOCYTES2.91.00 - 4.8 10*3/01/13/2025 1:09 PM EDT [facility] CtrMONOCYTES0.60.0 - 0.8 10*301/13/2025 1:09 PM [facility] CtrEOSINOPHILS0.30.0 - 0.45 10*301/13/2025 1:09 PM [facility] CtrBASOPHILS0.10.0 - 0.2 10*3/uL 01/13/2025 1:09 PM [facility] CtrSpecimen (Source) Anatomical Location / LateralityCollection Method / VolumeCollection Time Received TimeBlood (Blood)01/13/2025 11:25 AM EDT01/13/2025 12:59 PM EDT Narrative Authorizing ProviderResult TypeResult StatusPaul Larissa SHIPMAN BLOOD ORDERABLES Final ResultPerforming OrganizationAddressCity/State/ZIP CodePhone Number [facility] [address] [place] [address], [facility] [address] [place] [address] * (ABNORMAL) Basic metabolic panel (01/13/2025 11:25 AM EDT)ComponentValueRef RangeTest MethodAnalysis TimePerformed AtPathologist WmefaknrwHjdcshy513(H)70 - 100 mg/dL01/13/2025 11:56 AM [facility] CtrComment: Random Glucose Reference Range is dependent on time and content of last meal. Glucose of more than 200 mg/dL in a nonstressed, ambulatory subject supports the diagnosis of Diabetes Mellitus. ADA recommended reference range BUN26(H)7 - 25 mg/dL01/13/2025 11:56 AM [facility] CREATININE0.770.70 - 1.30 mg/dL01/13/2025 11:56 AM [facility] CtrESTIMATED GFR>60. 11:56 AM [facility] Fwmjmf012761 - 145 mmol/L01/13/2025 11:56 AM [facility] Potassium, Bld4.33.5 - 5.1 mmol/L01/13/2025 11:56 AM [facility] FpcAqynlcpy39924 - 107 mmol/L01/13/2025 11:56 AM [facility] CtrCarbon Andlwpj19.621.0 - 31.0 mmol/L01/13/2025 11:56 AM [facility] CtrAnion Gap11.76.0 - 15.009 11:56 AM [facility] CtrCalcium9.58.6 - 10.3 mg/dL01/13/2025 11:56 AM [facility] CtrSpecimen (Source)Anatomical Location / LateralityCollection Method / VolumeCollection TimeReceived TimeOtherTopography unknown / Unknown 01/13/2025 11:25 AM EDT01/13/2025 11:29 AM EDT Narrative Authorizing ProviderResult TypeResult StatusPaul C Laffay DOLAB BLOOD ORDERABLES Final ResultPerforming OrganizationAddressCity/State/ZIP CodePhone Number [facility] [address] [place] [address], [facility] [address] [place] [address] * ECG 12 lead (01/13/2025 11:10 AM EDT)Specimen (Source)Anatomical Location / LateralityCollection Method / VolumeCollection TimeReceived Time01/13/2025 11:[address] [facility] - 01/14/2025 9:12 AM EDT [facility] ?[facility] [address] [facility] ? [place] [address] ? Electrocardiograph Report ? Signed ? Patient: Miguel Shah W ?MR#: [id number] ?? 230 ? : 1970 ?Acct:[id number] ? Age/Sex: 54 / M ?ADM Date: 01/13/ ? Loc: PS ?Room: ?Type: DEP CLI ?? Attending Dr: Shaji Cabral DO ? Ordering Provider: Shaji Cabral,DO ?? Date of Service: 01/13/25 ?? ECG/ECG 12 lead ECG: PST ? Copies to: ? Test Reason : ?? Blood Pressure : ?? */* ?? mmHG ?? Vent. Rate : ??81 BPM ? Atrial Rate : ??81 BPM ? P-R Int : 146 ms ?QRS Dur : ??80 ms ?QT Int : 378 ms ? P-R-T Axes : ??74 ??52 ??35 degrees ?QTcB Int : 439 ms ? Normal sinus rhythm ?? Normal ECG ?? When compared with ECG of 25-Feb-2018 21:26, ?? Vent. rate has decreased by ??58 bpm ?? Confirmed by Garett Eugene ([id number]) on 01/14/2025 9:12:38 AM ? Referred By: ?Electronically Signed By: Garett Eugene ? Transcribed By: ? MUS ? Signed By ? Garett Eugene MD ?01/14/25 0912 Procedure Note Garett Eugene MD - 01/14/2025 [facility] Main [address] [address] Electrocardiograph Report Signed Patient: Miguel Shah WMR#: [id number] : 1970Acct:[id number] Age/Sex: 54 / MADM Date: 01/13/25 Loc: PS Room:Type: [facility] Attending Dr: Shaji Cabral DO Ordering Provider: Shaji Cabral DO Date of Service: 01/13/25 ECG/ECG 12 lead ECG: PST Copies to: Test Reason : Blood Pressure : */* mmHG Vent. Rate : 81 BPM Atrial Rate : 81 BPM P-R Int : 146 ms QRS Dur : 80 ms QT Int : 378 ms P-R-T Axes : 74 52 35 degrees QTcB Int : 439 ms Normal sinus rhythm Normal ECG When compared with ECG of 25-Feb-2018 21:26, Vent. rate has decreased by 58 bpm Confirmed by Garett Eugene ([id number]) on 01/14/2025 9:12:38 AM Referred By: Electronically Signed By: Garett Eugene Transcribed By: MUS Signed By Garett Eugene MD 01/14/25 09 Authorizing ProviderResult TypeResult StatusShaji Cabral DOECG ORDERABLESFinal ResultPerforming OrganizationAddressCity/State/ZIP CodePhone Number [facility] [address] [facility] [place] [address], * CT abdomen pelvis w IV contrast (12/25/2024 3:30 PM EDT)Anatomical Region LateralityModalityBody, Pelvis, AbdomenComputed Tomography Narrative Authorizing ProviderResult TypeResult StatusShaji Cabral DOIMG CT PROCEDURES Final Result from Last 3 Months Insurance * Guarantor: Miguel Shah TypeRelation to PatientDate of BirthPhone Billing AddressPersonal/XuwhgmLfrv45/30/1971 [address] [place] [address] Care Teams Team MemberRelationshipSpecialtyStart DateEnd Date Carroll Khan MD [address] [place] [id number] PCP - GeneralFamily Medicine09/13/22
--- OUTSIDE RECORDS SUMMARY | 2025-02-28 03:40 | XMS_ITS | Encounter Summary ---
Author Organization [facility] Address [address] [facility] [place] [address] Care Team Providers Care Parts Identification Technician Name Role Phone Carroll Khan MD Primary Care Provider Encounter Details DateTypeDepartmentCare Team (Latest Contact Info)Bshyqrwjvjl05/04/2025Travel Social History Tobacco UseTypesPacks/DayYears UsedDateSmoking Tobacco: Every [...] relatives?Twice a week11/24/2023How often do you attend islam or quaker services?Never11/24/2023o you belong to any clubs or organizations such as islam groups, unions, fraternal or athletic aaron ups, [...] very hard 11/24/2023HQ-2AnswerDate RecordedPatient Health Questionnaire-2 Score0 12/05/2023[facility] - Occupational Stress QuestionnaireAnswerDate RecordedDo you feel stress - tense, restless, nervous, or anxious, or unable to sleep at night because yourmind is troubled all the time - these days?To some rxweto9411/24/2023Exercise Vital SignAnswerDate Recorded On average, how many [...] were you homeless or living in a senior living (including now)?No11/24/2023Sex and Gender InformationValueDate Recorded Sex Assigned at BirthNot on fileLegal TznHcss4307/06/2022 7:09 PM EDTGender IdentityNot on fileSexual OrientationNot on filedocumented as of this encounter Plan of Treatment DateTypeDepartmentCare Team (Latest Contact Info)Oquarlqfquz33/11/2025 2:30 PM ESTOffice Visit [facility] [address] [phone] Shaji Cabral DO [address] [address] documented as of this encounter Visit Diagnoses Not on filedocumented in this encounter Care Teams Team MemberRelationshipSpecialtyStart DateEnd Date Carroll Khan MD [address] [place] [address] PCP - GeneralFamily Medicine09/13/22documented as of this encounter
--- OUTSIDE RECORDS SUMMARY | 2025-02-28 03:40 | XMS_ITS | Encounter Summary ---
Author Organization [facility] Address [address] [facility] [place] [address] Care Team Providers Care Patient Services Clerk Name Role Phone Carroll Khan MD Primary Care Provider [phone] Encounter Details DateTypeDepartmentCare Team (Latest Contact Info)Uvfdwsvrhwd51/29/2025Travel Social History Tobacco UseTypesPacks/DayYears UsedDateSmoking Tobacco: Every [...] relatives?Twice a week11/24/2023How often do you attend yarsani or sabianist services?Never11/24/2023o you belong to any clubs or organizations such as yarsani groups, unions, fraternal or athletic aaron ups, [...] very hard 11/24/2023HQ-2AnswerDate RecordedPatient Health Questionnaire-2 Score0 12/05/2023[facility] - Occupational Stress QuestionnaireAnswerDate RecordedDo you feel stress - tense, restless, nervous, or anxious, or unable to sleep at night because yourmind is troubled all the time - these days?To some rhuplc7811/24/2023Exercise Vital SignAnswerDate Recorded On average, how many [...] were you homeless or living in a longterm (including now)?No11/24/2023Sex and Gender InformationValueDate Recorded Sex Assigned at BirthNot on fileLegal AaxDxpf7007/06/2022 7:09 PM EDTGender IdentityNot on fileSexual OrientationNot on filedocumented as of this encounter Plan of Treatment DateTypeDepartmentCare Team (Latest Contact Info)Hoidkbouwxr79/11/2025 2:30 PM ESTOffice Visit [facility] [address] [phone] Shaji Cabral DO [address] [address] documented as of this encounter Visit Diagnoses Not on filedocumented in this encounter Care Teams Team MemberRelationshipSpecialtyStart DateEnd Date Carroll Khan MD [address] [place] [address] PCP - GeneralFamily Medicine09/13/22documented as of this encounter
--- OUTSIDE RECORDS SUMMARY | 2025-02-28 03:40 | XMS_ITS | Encounter Summary ---
Author Organization [facility] Address [address] [facility] [place] [address] Care Team Providers Care Continuous Vulcanizing Machine Operator Name Role Phone Carroll Khan MD Primary Care Provider [phone] Encounter Details DateTypeDepartmentCare Team (Latest Contact Info)Iivgznrmjlr84/03/2025Travel Social History Tobacco UseTypesPacks/DayYears UsedDateSmoking Tobacco: Every [...] relatives?Twice a week11/24/2023How often do you attend caodaism or church services?Never11/24/2023o you belong to any clubs or organizations such as caodaism groups, unions, fraternal or athletic aaron ups, [...] very hard 11/24/2023HQ-2AnswerDate RecordedPatient Health Questionnaire-2 Score0 12/05/2023[facility] - Occupational Stress QuestionnaireAnswerDate RecordedDo you feel stress - tense, restless, nervous, or anxious, or unable to sleep at night because yourmind is troubled all the time - these days?To some wfghhm3111/24/2023Exercise Vital SignAnswerDate Recorded On average, how many [...] were you homeless or living in a mcfp (including now)?No11/24/2023Sex and Gender InformationValueDate Recorded Sex Assigned at BirthNot on fileLegal OnlTyvt7307/06/2022 7:09 PM EDTGender IdentityNot on fileSexual OrientationNot on filedocumented as of this encounter Plan of Treatment DateTypeDepartmentCare Team (Latest Contact Info)Bxadsxkfpvq74/11/2025 2:30 PM ESTOffice Visit [facility] [address] [phone] Shaji Cabral DO [address] [address] documented as of this encounter Visit Diagnoses Not on filedocumented in this encounter Care Teams Team MemberRelationshipSpecialtyStart DateEnd Date Carroll Khan MD [address] [place] [address] PCP - GeneralFamily Medicine09/13/22documented as of this encounter
--- OUTSIDE RECORDS SUMMARY | 2025-02-28 03:40 | XMS_ITS | Encounter Summary ---
Author Organization [facility] Address [address] [place] [address] Care Team Providers Care Raw Stock Drier Tender Name Role Phone Carroll Khan MD Primary Care Provider [phone] Reason for Visit * ReasonOnset DateCommentsSevere pain02/24/2025 Encounter Details DateTypeDepartmentCare Team (Latest Contact Info)Ifiajmjjasx67/03/2025Telephone [facility] [address] [phone] Lian Motley [place] Severe pain Social History Tobacco UseTypesPacks/DayYears UsedDateSmoking Tobacco: [...] week11/24/2023How often do you attend restoration or baptist services?Never11/24/2023o you belong to any clubs or [...] very hard 11/24/2023HQ-2AnswerDate RecordedPatient Health Questionnaire-2 Score0 12/05/2023[facility] [place] [facility] - Occupational Stress QuestionnaireAnswerDate RecordedDo you feel stress - tense, restless, nervous, or anxious, or unable to sleep at night because yourmind is troubled all the time - these days?To some zgxzgz2511/24/2023Exercise Vital SignAnswerDate Recorded On average, how many [...] were you homeless or living in a snf (including now)?No11/24/2023Sex and Gender InformationValueDate Recorded Sex Assigned at BirthNot on fileLegal HxdCrtd0507/06/2022 7:09 PM EDTGender IdentityNot on fileSexual OrientationNot on filedocumented as of this encounter Miscellaneous Notes * Telephone Encounter - Lian Motley MA - 02/24/2025 1:25 PM EST Miguel Shah PCL pt. last seen 02/19 and discharged. now having extreme pain was supposed RTW today. he didn't go. Wants someone to call him back. He wants to be seen soon needs a note [place] [phone] Called patient and left message to call back. Pt called back and I scheduled him for an appt tomorrow to discuss severe stomach pain with Dr Cabral. He said this pain started on Monday an he went to work on Monday not sure what the pain is from but it continued all weekend. He said it is severe and he can not miss any work without an extensionof time off. I advised him this can be discussed at his appt. Pt verbalized understanding. documented in this encounter Plan of Treatment DateTypeDepartmentCare Team (Latest Contact Info)Sxoaurhfhtv23/11/2025 2:30 PM ESTOffice Visit [facility] [address] [phone] Shaji Cabral DO [address] [address] documented as of this encounter Visit Diagnoses Not on filedocumented in this encounter Care Teams Team MemberRelationshipSpecialtyStart DateEnd Date Carroll Khan MD [address] [place] [address] PCP - GeneralFamily Medicine09/13/22documented as of this encounter
--- OUTSIDE RECORDS SUMMARY | 2025-02-28 03:40 | XMS_ITS | Encounter Summary ---
Author Organization [facility] Address [address] [place] [address] Care Team Providers Care Line Installer Name Role Phone Carroll Khan MD Primary Care Provider [phone] Encounter Details DateTypeDepartmentCare Team (Latest Contact Info)Dacamaaojxq84/29/2025Telephone [facility] [address] [facility] [address] [place] [phone] Shaji Cabral DO [address] [facility] [address] [place] [address] Social History Tobacco UseTypesPacks/DayYears UsedDateSmoking Tobacco: Every [...] relatives?Twice a week11/24/2023How often do you attend congregational or congregational services?Never11/24/2023o you belong to any clubs or organizations such as congregational groups, unions, fraternal or athletic aaron ups, [...] very hard 11/24/2023HQ-2AnswerDate RecordedPatient Health Questionnaire-2 Score0 12/05/2023[facility] [place] [facility] Occupational Health - Occupational Stress QuestionnaireAnswerDate RecordedDo you feel stress - tense, restless, nervous, or anxious, or unable to sleep at night because yourmind is troubled all the time - these days?To some syvqgx7911/24/2023Exercise Vital SignAnswerDate Recorded On average, how many [...] were you homeless or living in a residential (including now)?No11/24/2023Sex and Gender InformationValueDate Recorded Sex Assigned at BirthNot on fileLegal SmiZcir8607/06/2022 7:09 PM EDTGender IdentityNot on fileSexual OrientationNot on filedocumented as of this encounter Miscellaneous Notes * Telephone Encounter - Brittanie Linton - 02/19/2025 9:04 AM EDT Work note documented in this encounter Plan of Treatment DateTypeDepartmentCare Team (Latest Contact Info)Owccxiifzra93/11/2025 2:30 PM ESTOffice Visit [facility] [address] [phone] Shaji Cabral DO [address] [address] documented as of this encounter Visit Diagnoses Not on filedocumented in this encounter Care Teams Team MemberRelationshipSpecialtyStart DateEnd Date Carroll Khan MD [address] [place] [address] PCP - GeneralFamily Medicine09/13/22documented as of this encounter
--- OUTSIDE RECORDS SUMMARY | 2025-02-28 03:41 | XMS_ITS | Encounter Summary ---
Author Organization [facility] Address [address] [place] [address] Care Team Providers Care Loans Consultant Name Role Phone Carroll Khan MD Primary Care Provider [phone] Encounter Details DateTypeDepartmentCare Team (Latest Contact Info)Cxxdlukvdzw63/04/2025External Result Encounter [facility] Unsolicited Shaji Cabral, DO [address] [address] Social History Tobacco UseTypesPacks/DayYears UsedDateSmoking Tobacco: Every [...] relatives?Twice a week11/24/2023How often do you attend anglican or oriental orthodox services?Never11/24/2023o you belong to any clubs or organizations such as anglican groups, unions, fraternal or athletic aaron ups, [...] very hard 11/24/2023HQ-2AnswerDate RecordedPatient Health Questionnaire-2 Score0 12/05/2023[facility] - Occupational Stress QuestionnaireAnswerDate RecordedDo you feel stress - tense, restless, nervous, or anxious, or unable to sleep at night because yourmind is troubled all the time - these days?To some sdvhne6111/24/2023Exercise Vital SignAnswerDate Recorded On average, how many [...] were you homeless or living in a intermediate (including now)?No11/24/2023Sex and Gender InformationValueDate Recorded Sex Assigned at BirthNot on fileLegal VlsTzlz6407/06/2022 7:09 PM EDTGender IdentityNot on fileSexual OrientationNot on filedocumented as of this encounter Plan of Treatment DateTypeDepartmentCare Team (Latest Contact Info)Kuqzyzvwylb66/11/2025 2:30 PM ESTOffice Visit [facility] [address] [facility] [address] [place] [address] Shaji Cabral, [address] [facility] [address] [place] [address] documented as of this encounter Procedures Procedure NamePriorityDate/TimeAssociated DiagnosisCommentsLIPASERoutine 02/25/2025 11:15 AM EST HEPATIC FUNCTION GVQKCOiatcnd75/04/2025 11:15 AM EST documented in this encounter Results * (ABNORMAL) Lipase (02/25/2025 11:15 AM EST)ComponentValueRef RangeTest Method Analysis TimePerformed AtPathologist ZnnobvkceELTMCZ233.0(H)11.0 - 82.0 U/L 02/25/2025 12:12 PM [facility] CtrSpecimen (Source) Anatomical Location / LateralityCollection Method / VolumeCollection Time Received TimeOtherTopography unknown / Sarjgbp1102/25/2025 11:15 AM EST 02/25/2025 11:15 AM EST Narrative Authorizing ProviderResult TypeResult StatusPalalita SHIPMAN BLOOD ORDERABLES Edited Result - FinalPerforming OrganizationAddressCity/State/ZIP CodePhone Number [facility] [address] [place] [address], [facility] [address] [place] [address] * Hepatic function panel (02/25/2025 11:15 AM EST)ComponentValueRef RangeTest MethodAnalysis TimePerformed AtPathologist SignatureTOTAL PROTEIN7.36.4 - 8.9 g/dL02/25/2025 12:12 PM [facility] CtrALBUMIN LEVEL4.33.5 - 5.7 g/dL02/25/2025 12:12 PM [facility] CtrGLOBULIN3.0g/dL 02/25/2025 12:12 PM [facility] CtrALBUMIN/GLOBULIN RATIO1.4 02/25/2025 12:12 PM [facility] CtrBILIRUBIN,TOTAL0.50.3 - 1.0 mg/dL02/25/2025 12:12 PM [facility] CtrBILIRUBIN,DIRECT 0.100.03 - 0.18 mg/dL02/25/2025 12:12 PM [facility]tr BILIRUBIN,INDIRECT0.4mg/dL02/25/2025 12:12 PM [facility] CtrASPARTATE AMINO TJWBTWHBNUX0330 - 39 U/L104/27/2024 12:12 PM [facility] CtrALANINE WKMDWIYDDRUOFNTH138 - 52 U/L104/27/2024 12:12 PM [facility] CtrALKALINE ORICSYIIMYE0644 - 104 U/L104/27/2024 12:12 PM [facility] CtrSpecimen (Source)Anatomical Location / LateralityCollection Method / VolumeCollection TimeReceived TimeOther Topography unknown / Ulhwiny3002/25/2025 11:15 AM EST02/25/2025 11:15 AM EST Narrative Authorizing ProviderResult TypeResult StatusPaul C Marianna DOL BLOOD ORDERABLES Edited Result - FinalPerforming OrganizationAddressCity/State/ZIP CodePhone Number [facility] [address] [place] [address], [facility] [address] [place] [address] documented in this encounter Visit Diagnoses Not on filedocumented in this encounter Care Teams Team MemberRelationshipSpecialtyStart DateEnd Date Carroll Khan MD [address] [place] [address] PCP - GeneralFamily Medicine5/23/23documented as of this encounter
[2025-02-28 04:02] LABS: Hematocrit 43.5 % (42.0-54.0); Hemoglobin 14.5 g/dL (14.0-18.0); Immature Granulocytes Abs Auto 0.19 10^3/uL (0.00-0.03); Immature Granulocytes Pct Auto 1.5 % (0.0-0.5); Lymphocytes Absolute Auto 2.6 10^3/uL (1.2-3.8); Mean Corpuscular HGB Conc 33.3 g/dL (29.9-35.2); Mean Corpuscular Hemoglobin 28.6 pg (25.9-34.0); Mean Corpuscular Volume 85.8 fL (80.0-94.0); Platelet Count 182 10^3/uL (150-450); Red Blood Count 5.07 10^6/uL (4.70-6.10); White Blood Count 12.5 10^3/uL (4.0-11.0)
[2025-02-28 04:07] LABS: Alanine Aminotransferase 25 U/L (16-63); Albumin Globulin Ratio 0.9; Albumin Level 3.4 g/dL (3.4-5.0); Alkaline Phosphatase 72 U/L (46-116); Anion Gap 11.0; Aspartate Amino Transferase 15 U/L (15-37); Blood Urea Nitrogen 24.0 mg/dL (7.0-18.0); Calcium 8.9 mg/dL (8.5-10.1); Carbon Dioxide 25.5 mmol/L (21.0-32.0); Chloride 100 mmol/L (98-107); Estimated GFR (African America >60 (>=60 mL/min/1.73m^2); Estimated GFR (Non-African Ame >60 (>=60 mL/min/1.73m^2); Globulin 3.8 g/dL; Glucose 239 mg/dL (74-106); Lipase 338.0 U/L (16.0-77.0); Potassium 4.5 mmol/L (3.5-5.1); Sodium 132 mmol/L (136-145); Total Protein 7.2 g/dL (6.4-8.2)
[2025-02-28] MEDS: FAMOTIDINE 20 MG TABLET 40 MG PO (04:07)
[2025-02-28] MEDS: lidocaine HCL 15 ML, MAG HYDROX/ALUMINUM HYD/SIMETH 30 ML, HYOSCYAMINE SULFATE 0.25 MG PO (04:07)
--- NOTE | 2025-02-28 04:34 | XR_ITS ---
The [address] [address] Patient Name: CHASITY BECK MRN: [id number] date: 1970 Sex: M Assigned Patient Location: ER Current Patient Location: Accession/Order Number: [id number] Exam Date: 02/28/2025 04:41 Report Date: 02/28/2025 07:38 At the request of: ATIF SOLIS MD Procedure: XR abdomen min 2V ACUTE ABDOMEN SERIES - 2 views CLINICAL DATA: Epigastric pain. History of cholecystectomy last month. COMPARISON: CT 12/13/2024 Supine and upright views of the abdomen and pelvis were obtained. There is air within the stomach. There is air and mild stool within the colon. There is some small bowel air on the left, without disproportionate distention. No free air or significant air-fluid levels are seen. No soft tissue masses or suspect renal calculi are identified. There is subtle levoscoliotic curvature and mild degenerative changes at the spine. There are right upper quadrant clips from prior cholecystectomy. XR/XR abdomen min 2V IMPRESSION: NONSPECIFIC, NONOBSTRUCTIVE BOWEL GAS PATTERN. Impression dictated by: Ami Loja M.D. 02/28/2025 7:38 AM Dictation Location: [place] [address] Electronically authenticated by: [id number] Y Date: 02/28/2025 07:38
--- NOTE | 2025-02-28 05:09 | PC.NURSE ---
i gave this patient verbal and written discharge orders along with 2 Rx and he voices yes to understanding these. at time of discharge this patient voices no concerns, needs and shows no signs of distress
== END 2025-02-28 05:08 | disposition home or self-care (01) ==
PROVIDERS: Emergency Provider Emergency Medicine; PCP Family Medicine
DX: R10.13 Epigastric pain (principal); K59.00 Constipation, unspecified; R10.9 Unspecified abdominal pain; Z90.49 Acquired absence of other specified parts of digestive tract
CPT/HCPCS: 36415; 74019; 80053; 83690; 85025; 99284